=== PATIENT | female | born 1955 | race Caucasian/White ===

== ENCOUNTER 2020-09-20 07:29 | Observation (INO) ==
--- NOTE | 2020-08-22 09:41 | PAT Medication Instructions ---
Medication Instructions Date of Service August 22, 2020 Home Medications cinnamon bark [Cinnamon] 500 mg PO BID levothyroxine 100 mcg PO QAM multivitamin 1 tab PO QAM rosuvastatin [Crestor] 20 mg PO PM timolol 1 drp OPHTHALMIC (EYE) BID metformin 500 mg PO BID STOP taking 2 weeks before surgery (or as soon as possible if surgery is within 2 weeks) cinnamon bark [Cinnamon] 500 mg PO BID DO NOT take the morning of surgery multivitamin 1 tab PO QAM metformin 500 mg PO BID Take morning of surgery With a small sip of water, OTHERWISE NOTHING TO EAT OR DRINK AFTER MIDNIGHT: levothyroxine 100 mcg PO QAM timolol 1 drp OPHTHALMIC (EYE) BID Take evening before surgery rosuvastatin [Crestor] 20 mg PO PM timolol 1 drp OPHTHALMIC (EYE) BID metformin 500 mg PO BID Other Notes If you have any questions please call us at [phone] or [phone] or [phone] or [phone]
--- NOTE | 2020-08-24 09:56 | Anesthesiology Consultation ---
Date of Service August 24, 2020 Assessment & Plan (1) Encounter for pre-operative examination: - Per assessment on 08/24: Travel screen negative. No known COVID-19 positive contacts or current COVID-19 related symptoms. Surgeon arranging preop COVID testing (scheduled 09/14; surgeon's office). Awaiting results. - S/P Left Knee Arthroscopy; Meniscus Debridement; Chondroplasty: 10/09/19: LMA#4 x 1 attempt/atraumatic/good seal at [facility] [place] - Check BSG AM DOS Chart Review Chart Review: Acceptable Risk for Surgery (pending surgeon-ordered PCP clearance) and Patient seen in Pre Admission Testing Teaching & Discussion Pre-Anesthesia Teaching/Discussion Notes: Instructed NPO after midnight before surgery,except medications with 15 cc of water. Medication instructions provided according to the PAT guidelines. History Surgery Operation Date: 09/20/20 07:00 Proposed Procedures p Left Total Knee Arthroplasty - Robert Denise Tillman MD Height/Weight Height: 5 ft 7 in Weight: 92.6 kg Allergies Allergy/AdvReac Type Severity Reaction Status Date / Time No Known Allergies Allergy Verified 08/19/20 16:08 Medications Home Medications Medication Instructions Recorded Confirmed Last Taken cinnamon bark [Cinnamon] 500 mg PO BID 09/22/19 08/19/20 10/08/19 levothyroxine 100 mcg PO QAM 09/22/19 08/19/20 10/08/19 multivitamin 1 tab PO QAM 09/22/19 08/19/20 10/08/19 rosuvastatin [Crestor] 20 mg PO PM 09/22/19 08/19/20 10/08/19 timolol 1 drp OPHTHALMIC (EYE) BID 09/22/19 08/19/20 10/08/19 metformin 500 mg PO BID 08/19/20 08/19/20 Unknown Past Medical History Medical History DM type 2 (diabetes mellitus, type 2) NIDDM Glaucoma Hyperlipidemia Hypothyroidism Osteoarthritis Exercise / Class Metabolic Activity II 4-5 Yardwork/Stairs/Walk up hill (one flight of stairs (no chest pain, no sob)) Past Family History Family History Sister Colon cancer Brother Colon cancer Brother Throat cancer Other No family history of adverse response to anesthesia Past Surgical History Surgical History (Updated 08/24/20 @ 14:21 by Nat Yee) History of carpal tunnel release BILAT History of cataract surgery History of colonoscopy History of hysterectomy History of surgical removal of meniscus of knee R/L; Left Knee Arthroscopy; Meniscus Debridement; Chondroplasty: 10/09/19: LMA#4 x 1 attempt/atraumatic/good seal at [facility] [place] History of tonsillectomy Past Anesthesia History No Hx of Anesthesia Complications and No Family Hx of Anesthesia Complications History of PONV No Hx of PONV and No Hx of Motion Sickness Social History Smoking Status: Never smoker Do You Dip or Chew Tobacco: No Hx Alcohol Use: No Hx Substance Use: No substance use type: does not use Review of Systems Patient denies chest pain, shortness of breath, dyspnea on exertion, fever, chills, cough, wheezing, palpitations. Physical Exam Vital Signs VITALS BP 120/85 P 86 TEMP 98.1 SP02 98%RA RESP 18 PHYSICAL Full neck and c-spine range of motion. Full TMJ range of motion. TMD 3 finger breaths Mallampati Score 1 Dentition: full upper/lower dentures Lungs: clear throughout to auscultation Cardiac: regular rate and rhythm, no murmurs noted Spine: normal Carotid arteries: negative bruit Extremities: no edema Testing Laboratory Results 08/24/20 10:27 08/24/20 10:27 PT 11.2 Seconds (9.0-12.0) 08/24/20 10:27 INR 1.1 (0.9-1.1) 08/24/20 10:27 APTT 30.7 Seconds (21.0-31.0) 08/24/20 10:27 Hemoglobin A1c 8.2 % (4.5-5.6) H 08/24/20 10:27 Blood Type A Positive 08/24/20 10:27 Antibody Screen NEGATIVE 08/24/20 10:27 Surgeon's office made aware of elevated WBC and hgba1c* Electrocardiogram Date: 09/22/19 Findings: + SB @ (59)
[2020-08-24 11:01] LABS: Basophils # (auto) 0.02 K/uL (0-0.2); Basophils % (auto) 0.2 %; Eosinophils # (auto) 0.41 K/uL (0-0.5); Eosinophils % (auto) 3.3 %; Hematocrit (blood only) 45.8 % (37-47); Hemoglobin 15.7 g/dL (12.0-16.0); Immature Granulocytes # (auto) 0.04 K/uL (0.00-0.02); Immature Granulocytes % (auto) 0.3 %; Lymphocytes # (auto) 3.85 K/uL (1.2-3.4); Lymphocytes % (auto) 31.1 %; Mean Corpuscular Hemoglobin 29.2 pg (25-34); Mean Corpuscular Hgb Conc 34.3 g/dL (32-36); Mean Corpuscular Volume 85.1 fL (80-100); Monocytes # (auto) 1.06 K/uL (0.11-0.59); Monocytes % (auto) 8.6 %; Neutrophils % (auto) 56.5 %; Platelet Count 347 K/uL (130-400); RDW Coefficient of Variation 13.7 % (11.5-14.5); RDW Standard Deviation 42.1 fL (36.4-46.3); Red Blood Count 5.38 M/uL (4.2-5.4); White Blood Count 12.38 K/uL (4.8-10.8)
[2020-08-24 11:15] LABS: INR 1.1 (0.9-1.1); Partial Thromboplastin Ratio 1.1; Partial Thromboplastin Time 30.7 Seconds (21.0-31.0); Prothrombin Time 11.2 Seconds (9.0-12.0)
[2020-08-24 11:23] LABS: BUN Creatinine Ratio 12.5 (10-20); Calcium 9.5 mg/dl (8.5-10.1); Creatinine Clr Calc Pharmacy 68.3 ml/min; Est GFR (African American) 71.9; Est GFR (Non-African American) 62.1; Potassium 3.3 mmol/L (3.5-5.1)
[2020-08-24 11:25] LABS: Bilirubin Direct 0.1 mg/dl (0-0.2); Bilirubin,Total 0.5 mg/dl (0.2-1); Total Protein 8.1 gm/dl (6.4-8.2)
[2020-08-24 11:55] LABS: Estimated Average Glucose 189 mg/dl; Hemoglobin A1C 8.2 % (4.5-5.6)
[~2020-09-20 07:29] MED LIST: BUPIVACAINE 0.5 % 5 MG/1 ML PF 10ML VIAL ONE; CeleBREX 200 MG CAP PO SCH; EPINEPHrine INJ 1 MG/ML AMP ONE; LR 500ML BOLUS, THEN 15ML/HR IV SCH; LR 60ML/HR IV SCH; ROPIVACAINE 0.5% 5 MG/ML 30 ML VIAL ONE; ROPIVACAINE 0.5% HCL/PF 150 MG, BUPIVACAINE 0.5% MPF 30 ML, EPINEPHrine 0.15 MG, Ketoro... INFIL SCH; TRANEXAMIC ACID 1,000 MG **IV Intra-op IV SCH; TRANEXAMIC ACID 1,000 MG **IV Pre-op IV SCH; ceFAZolin 2000MG 2,000 MG/15 ML SYR IV SCH
[2020-09-20] MEDS ORDERED: fentaNYL citrate 100 MCG/2 ML VIAL ONE (08:03)
[2020-09-20] MEDS ORDERED: MIDAZOLAM HCL 1 MG/ML 2ML VIAL ONE (08:03)
--- NOTE | 2020-09-20 10:56 | History & Physical Bridge Note ---
Date of Service September 20, 2020 History & Physical Bridge Note I have examined the patient, reviewed the History & Physical and in the interval since the performance of the History & Physical I have noted the following changes of clinical significance: no changes noted Patient is aware of the risks, is asymptomatic, and tested negative for COVID- 19.
[2020-09-20] MEDS ORDERED: ePHEDrine sulfate 50 MG/ML AMP IV PRN (11:25)
[2020-09-20] MEDS ORDERED: ATROPINE SULFATE 0.1 MG/ML 10ML SYR IV PRN (11:25)
[2020-09-20] MEDS ORDERED: ORTHO JOINT ANESTHETIC ONE (11:36)
[2020-09-20] MEDS ORDERED: ONDANSETRON INJ 2 MG/ML 2 ML VIAL ONE (11:52)
[2020-09-20] MEDS ORDERED: LIDOCAINE HCL 2% 2 ML VIAL/AMP(20MG/ML) INFIL ONE (11:52)
[2020-09-20] MEDS ORDERED: PROPOFOL IV EMULSION 10 MG/ML 20 ML VIAL IV ONE (11:52)
--- NOTE | 2020-09-20 14:09 | Post Operative Brief Note ---
Immediate Post Op Note v1 Date of Surgery September 20, 2020 Pre & Post Diagnosis Operation Date: 09/20/20 09:50 Pre-Op Diagnosis: Left Knee Osteoarthritis Post-Op Diagnosis: Left Knee Osteoarthritis I identified the patient and participated in the time-out.: Yes Procedure Operation Date: 09/20/20 09:50 Actual Procedures p Left Total Knee Arthroplasty(Left) - Robert Tillman MD Surgeon Robert Tillman MD Cylinder Block Hole Reliner Viral Flaherty PA-C (No fellow avail) Estimated Blood Loss 100 Findings Consistent with Post-Op Diagnosis Fluids 1500 cc Specimens Left knee contents Anesthesia Type MAC Spinal Regional Complications none
--- NOTE | 2020-09-20 14:10 | Operative Report ---
Post Operative Report Pre & Post Diagnosis Operation Date: 09/20/20 09:50 Pre-Op Diagnosis: Left Knee Osteoarthritis Post-Op Diagnosis: Left Knee Osteoarthritis I identified the patient and participated in the time-out.: Yes Procedure Operation Date: 09/20/20 09:50 Actual Procedures p Left Total Knee Arthroplasty(Left) - Robert Tillman MD Surgeon Robert Tillman MD Rn Community Viarl Flaherty PA-C (No fellow avail) Estimated Blood Loss 100 Findings See Below Examined Under Anesthesia: ROM -- There was 5 degrees to 125 degrees of flexion Ligamentous examination -- revealed stable Guerline, posterior drawer, varus and valgus stress at 5 and 30 degrees. Outerbridge Type IV changes of Patellofemoral and medial compartment, Type III changes in lateral compartment. Large posterior medial tibial osteophyte. Fluids 1500 cc Specimens Left knee contents Anesthesia Type MAC Spinal Regional Complications none Indications This is a 64-year-old female who has clinical and radiographic findings consistent with osteoarthritis of the a left knee. I recommended that a left total knee replacement be performed. The patient understands the risks of surgery, which include but not limited to: bleeding, infection, re-operation, damage to nerves and arteries, continued knee pain, knee stiffness, DVT, and . The patient understands all of these instructions and explanations, all of his questions have been satisfactorily addressed and the patient has elected to proceed. Informed consent was signed. Description of Procedure IMPLANTS: 1. Femur: Triathlon #2 Left PS, with pegs. 2. Tibia: Triathlon #3 Wilmer. 3. Insert: Triathlon #3 x 9 mm PS X3 poly. 4. Patella: Triathlon A29 x 9 mm X3 poly. 5. Simplex cement. Viral Flaherty PA-C is assisting with positioning , retracting, and closure due to fellow not available. PROCEDURE: The patient was taken to the Operating Room and placed in the supine position after spinal and adductor canal nerve block was administered. My initials and a multidisciplinary time-out were used to identify the left leg as the correct operative limb. A tourniquet was placed high in the thigh. Prior to the incision, 2 grams of intravenous Ancef were given. The left leg was then prepped and draped in a standard sterile fashion. An Esmarch was used to exsanguinate the leg and the tourniquet was inflated to 250 mmHg. The planned mid-line 20 cm incision was created exposing the extensor mechanism. The medial parapatellar arthrotomy was made and the patella was everted. The patella was addressed first. It was prepared by reaming from 21 mm down to 13 mm. An A29 button was found to fit best. The peg holes were made in the standard fashion. The femur was addressed next and the guide efren was placed intramedullary. The initial cutting block was placed with 6 degrees of valgus and removing 10 mm for the distal cut. The cut was made and the 4-in-1 cutting block for a size 2 femur was placed. These cuts and the cuts to place the box were made in the standard fashion. Our attention was then drawn to the tibia cut with the external cutting guide, taking 4 mm from the medial low side. There was sufficient extension and flexion gap to fit a 9 mm spacer. A #3 Tibial baseplate fit well. A trial with a 9 mm spacer showed excellent stability in both flexion and extension, with good ligament balance. Range of motion of 0-125 degrees. The tibial baseplate was pinned and the final preparation for the keel and stem was made. All the trial components were tested again, with good stability and thumbs free tracking of the patella. All components were removed. The tourniquet was deflated. Hemostasis was obtained. 90 ml of total knee cocktail were injected into the soft tissues and periosteum. A bone plug was placed in the femur and covered with bone wax. After a 15 minute break, the limb was exsanguinated again and the tourniquet was re-inflated. All surfaces were copiously irrigated prior to placement of the components. The femoral component and Tibial baseplate were placed with the first batch of cement and a 9 mm X3 poly was placed. The patellar button was placed using the same batch of Simplex cement. The range of motion and stability were excellent and unchanged with thumbs free tracking of the patella. The extensor mechanism was closed with 1-0 and 0 Vicryl with the knee bent approximately 60 degrees in a standard fashion. The peritenon and deep fascia was closed with 2-0 Vicryl. The subcutaneous layer was closed with 3-0 Vicryl. The skin was closed with Zipline. The limb was cleaned and dried. 4x4 dressing was placed over top followed by ABDs, sterile Webril, and a foot to thigh Mann bandage. The patient was then transferred to the Recovery Room in stable condition. The sponge and needle counts were correct. POST-OP INSTRUCTIONS: The patient will be WBAT. The patient will be admitted to the hospital. The patient will use the knee immobilizer when ambulating and standing until good quad control is achieved. Labs will be obtained during the stay. DVT prophylaxis will included aspirin for 6 weeks, TEDs, and mechanical foot pumps. The dressing will be changed prior to their discharge or postop day #2 and covered with a Silverlon dressing, whichever comes first. I attest to the content of the Intraoperative Record and any orders documented therein. Any exceptions are noted below.
[2020-09-20] MEDS ORDERED: SODIUM CHLORIDE 0.9% 1000ML 1,000 ML IV SCH (14:21)
[2020-09-20] MEDS ORDERED: MAGNESIUM HYDROXIDE SUSP 30 ML UDC PO PRN (14:21)
[2020-09-20] MEDS ORDERED: NALOXONE HCL 0.4 MG/1 ML VIAL/CARP IV PRN (14:21)
[2020-09-20] MEDS ORDERED: METOCLOPRAMIDE HCL INJ 5 MG/ML 2 ML VIAL IV PRN (14:21)
[2020-09-20] MEDS ORDERED: HYDROmorphone INJ 1 MG/ML SYRINGE IV PRN (14:21)
[2020-09-20] MEDS ORDERED: diphenhydrAMINE Capsule 25 MG CAP PO PRN (14:21)
[2020-09-20] MEDS ORDERED: ONDANSETRON INJ 2 MG/ML 2 ML VIAL IV PRN (14:21)
[2020-09-20] MEDS ORDERED: bisacodyL 10 MG SUPP PR PRN (14:21)
[2020-09-20] MEDS ORDERED: diphenhydrAMINE 50 MG/ML VIAL IV PRN (14:21)
--- NOTE | 2020-09-20 14:23 | Operative Report ---
Post Operative Report Pre & Post Diagnosis Operation Date: 09/20/20 09:50 Pre-Op Diagnosis: Left Knee Osteoarthritis Post-Op Diagnosis: Left Knee Osteoarthritis I identified the patient and participated in the time-out.: Yes Procedure Operation Date: 09/20/20 09:50 Actual Procedures p Left Total Knee Arthroplasty(Left) - Robert Tillman MD Surgeon Robert Tillman MD Software Test Analyst Viral Flaherty PA-C (No fellow avail) Estimated Blood Loss 100 Findings Consistent with Post-Op Diagnosis Specimens bone and soft tissue Complications none Indications see Dr Tillman operative report Description of Procedure See Dr Tillman operative report. I was nurse assistant during entire case to include prepping, draping, limb and instrument handling, wound closure, dressings. I attest to the content of the Intraoperative Record and any orders documented therein. Any exceptions are noted below.
--- NOTE | 2020-09-20 14:48 | XRay Report ---
XR knee LT 1 or 2V routine CLINICAL HISTORY: Surgical Post Op COMPARISON: Left knee radiographs August 09, 2020. FINDINGS: Alignment of the total left knee arthroplasty is anatomic. There is no periprosthetic frac ture or unexpected radiopaque foreign body. IMPRESSION: Expected findings following total left knee arthroplasty. ACT 112: Negative or not required by law. Electronically signed by: Perez Lundy M.D. 09/20/2020 2:47 PM
[2020-09-20] MEDS ORDERED: PHARMACY GLYCEMIC MGMT CONSULT PRN (14:52)
[2020-09-20] MEDS ORDERED: CARBOHYDRATES FOR HYPOGLYCEMIA PO PRN (15:00)
[2020-09-20] MEDS ORDERED: GLUCOSE 10 TABS/TUBE PO PRN (15:00)
[2020-09-20] MEDS ORDERED: GLUCOSE 40% GEL 15 GM TUBE PO PRN (15:00)
[2020-09-20] MEDS ORDERED: DEXTROSE 50% 50 ML SYRINGE IV PRN (15:00)
[2020-09-20] MEDS ORDERED: GLUCAGON FOR INJ 1 MG VIAL IM PRN (15:00)
--- NOTE | 2020-09-20 15:08 | Anesthesiology Progress Note ---
Date of Service September 20, 2020 Anesthesia Post Procedure Vital Signs Vital Signs: Temp Pulse Pulse Resp BP BP Pulse Ox 09/20/20 15:05 65 23 121/71 97 09/20/20 14:55 68 20 126/85 98 09/20/20 14:45 36.5 C 68 20 120/74 99 09/20/20 14:35 69 18 114/73 100 09/20/20 14:25 76 20 132/92 99 09/20/20 14:15 36.1 C L 83 16 118/55 L 93 09/20/20 08:52 36.7 C 72 20 144/84 H 95 09/20/20 08:05 36.7 C 86 18 170/87 H 96 Transfer of Care Handoff Completed per policy Notes Mental Status: alert / awake / arousable Patient Amnestic to Procedure: Yes Nausea / Vomiting: adequately controlled Pain: adequately controlled Airway Patency, RR, SpO2: stable & adequate BP & HR: stable & adequate Hydration State: stable & adequate Neuraxial Anesthesia: was administered and sensory block is resolving Anesthetic Complications: no major complications apparent
[2020-09-20] MEDS: Scopolamine CHECK PATCH PLACEMENT SCH ×2 (17:25→23:25)
[2020-09-20] MEDS: ASCORBIC ACID 500 MG TAB PO SCH (18:17)
[2020-09-20] MEDS: FERROUS GLUCONATE 324 MG TAB PO SCH (18:17)
[2020-09-20] MEDS: INSULIN ASPART 100 UNITS/ML 3 ML PEN SC SCH ×2 (18:27→21:38)
--- NOTE | 2020-09-20 18:27 | Consultation ---
Date of Consultation September 20, 2020 Assessment & Plan (1) Status post total left knee replacement: by Dr Tillman today. Defer pain management, DVT proph, dispo to primary orthopedic team. (2) DM type 2 (diabetes mellitus, type 2): Hold metformin. DM diet. BSGs ac/hs. Add lantus 8 units HS. novolog correction/carb coverage -- agree with correction of 30 and carb ratio 1:10. adjust as needed. (3) Glaucoma: continue home drops (4) Hyperlipidemia: cont statin agent (5) Hypothyroidism: cont synthroid 100mcg daily (6) Abnormal pulse oximetry: O2 sats borderline low during my visit. Good waveform on monitor. Sats ranging 89-92%. No pulmonary symptoms. Clear lung exam. Follow carefully. If this persists at minimum obtain cxr but would also need to consider PE protocol chest CT. (7) DVT prophylaxis: orthopedics has chosen asa 81mg BID. Thank you for this consult. Will follow with you. Agree with CBC, BMP in am. Add mag to am labs. Pre-op medical clearance letter references use of HCTZ at home. History of Present Illness Requesting Physician: Robert Tillman MD Reason for Consultation: post-op medical management Attending Physician: Robert Tillman MD History of Present Illness 64yo female with h/o T2DM, hypothyroidism, and hyperlipidemia who presented today for elective left TKR by Dr Robert Tillman. I saw the patient post-op from her surgery and she was resting comfortably on the orthopedic floor. 100cc of blood loss was reported in the operative record. Patient denied any post-op chest pain, dyspnea, abd pain, nausea, emesis. O2 sats in the room while I was examining her were 89-91% in room air. She did have occasional cough. Denied any personal or family history of VTE. Allergies Allergy/AdvReac Type Severity Reaction Status Date / Time No Known Allergies Allergy Verified 09/20/20 08:03 Home Medications Home Medications Medication Instructions Recorded Confirmed Type cinnamon bark [Cinnamon] 500 mg PO BID 09/22/19 09/20/20 History levothyroxine 100 mcg PO QAM 09/22/19 09/20/20 History multivitamin 1 tab PO QAM 09/22/19 09/20/20 History rosuvastatin [Crestor] 20 mg PO PM 09/22/19 09/20/20 History timolol 1 drp OPHTHALMIC (EYE) HS 09/22/19 09/20/20 History metformin 500 mg PO BID 08/19/20 09/20/20 History Patient History Medical History DM type 2 (diabetes mellitus, type 2) NIDDM Glaucoma Hyperlipidemia Hypothyroidism Osteoarthritis Surgical History History of carpal tunnel release BILAT History of cataract surgery History of colonoscopy History of hysterectomy History of surgical removal of meniscus of knee R/L; Left Knee Arthroscopy; Meniscus Debridement; Chondroplasty: 10/09/19: LMA#4 x 1 attempt/atraumatic/good seal at [facility] [place] History of tonsillectomy Family History Sister Colon cancer Brother Colon cancer Brother Throat cancer Father , age 59 Stroke Mother , in her 80s Gastric cancer Other No family history of adverse response to anesthesia Social History (Updated 09/20/20 @ 22:24 by Mika Figueroa) Smoking Status: Never smoker Second Hand Exposure: No; Do You Dip or Chew Tobacco: No; Hx Alcohol Use: No Hx Substance Use: No Preferred Language: Croatian Communication Ability: Effective Bit Welder Required: No Beliefs That Will Affect Care: None marital status: Current Living Situation: Spouse current occupational status: retired current occupation: worked in [employer] How many Children do You have: 1 Feels Safe at Home: Yes Safety Concerns: Feels Safe At This Time Assistive Devices: Denture - Upper, Denture - Lower and Glasses Review of Systems Constitutional: no fever, no chills, no fatigue and no anorexia Ear, Nose, Mouth, Throat: no nasal congestion, no sore throat and no dysphagia no loss of taste or smell Respiratory: no cough, no dyspnea and no dyspnea on exertion Cardiovascular: no chest pain, no orthopnea and no edema Gastrointestinal: no abdominal pain, no nausea, no vomiting, no diarrhea/loose stools and no blood in stools Genitourinary: + nocturia Musculoskeletal: + joint pain (knees) Integumentary: no rash Neurologic: no loss of sensation Psychiatric: no depression Endocrine: sugars "have been high" (150+) Physical Exam Constitutional: well developed and well nourished; no acute distress and no altered mental status Eyes: pupils equal, about 3mm b/l ENMT: external ear and nose normal, oropharynx normal Neck: trachea midline, no thyromegaly Respiratory: normal respiratory effort, lungs clear to auscultation Cardiovascular: Rate/Rhythm: regular rate and regular rhythm Heart Sounds: normal S1 and normal S2; no murmur Vessels: posterior tibial pulses present and dorsalis pedis pulses present; no JVD Extremities: no edema Gastrointestinal (Abdomen): normal bowel sounds, soft, nontender, no hepatosplenomegaly Musculoskeletal: left knee dressing in place Skin: no rashes, warm and dry Neurologic: moves all extremities; no focal motor deficits Psychiatric: A+Ox3, euthymic affect Lymphatic: no cervical lymphadenopathy Results & Data ([facility]) Vital Signs (Past 12 Hours) Vital Signs Temp Pulse Pulse Resp BP BP Pulse Ox 09/20/20 18:00 36.6 C 77 18 107/68 91 09/20/20 17:25 37.2 C 67 18 116/81 96 09/20/20 16:27 76 15 112/64 92 09/20/20 16:10 75 16 104/55 L 93 09/20/20 15:55 71 22 127/74 92 09/20/20 15:40 69 17 115/73 93 09/20/20 15:25 73 20 113/69 95 09/20/20 15:15 72 18 122/72 97 09/20/20 15:05 65 23 121/71 97 09/20/20 14:55 68 20 126/85 98 09/20/20 14:45 36.5 C 68 20 120/74 99 09/20/20 14:35 69 18 114/73 100 09/20/20 14:25 76 20 132/92 99 09/20/20 14:15 36.1 C L 83 16 118/55 L 93 09/20/20 08:52 36.7 C 72 20 144/84 H 95 09/20/20 08:05 36.7 C 86 18 170/87 H 96 Laboratory Results Laboratory Results - last 24 hr 09/20/20 09/20/20 09/20/20 07:58 14:17 17:08 POC Glucose 153 H 105 H 179 H 09/20/20 20:31 POC Glucose 142 H PG Care Time/CCT Total # of Minutes Spent Total Time Spent with Patient: Total time spent is greater than 50% in coordination of care (as documented) at patient's floor/unit and/or counseling patient: Coding Level of Care Code 06824 Subseq Hosp Care Lvl 3 Diagnoses Status post total left knee replacement Z96.652 DM type 2 (diabetes mellitus, type 2) E11.9 Glaucoma H40.9 Hyperlipidemia E78.5 Hypothyroidism E03.9 Abnormal pulse oximetry R79.81 DVT prophylaxis Z29.9
--- NOTE | 2020-09-20 19:38 | Orthopedic Progress Note ---
Date of Service September 20, 2020 Assessment & Plan (1) Arthritis of knee, left: POD #0 s/p L TKA, doing as well as expected. Resume diet. WBAT LLE with walker, immobilizer when ambulating for 48 hours or until demonstrates good quad control. OOB to chair. Continue pain control. Check labs tomorrow. DVT prophylaxis: TEDs 3 weeks, foot pumps while in hospital, ASA 81 mg BID for 6 weeks. PT/OT. Change Dressing to Silverlon on POD #2 or prior to discharge, whichever comes first. appreciate medicine input. D/C planning. Present on Admission?: Yes Admission and Anticipated Discharge Date Admission Date: September 20, 2020 Subjective Doing well Review of Systems Review of Systems: All systems reviewed & are unremarkable except as noted in HPI & below Physical Exam Physical Exam: LLE: Dressing clean, dry, intact. Calf soft and non-tender. BCR < 2 sec. No sensation or motor. Results & Data ([facility]) Vital Signs (Past 12 Hours) Vital Signs Temp Pulse Pulse Pulse Resp BP BP 09/20/20 19:14 36.6 C 66 18 121/81 09/20/20 18:00 36.6 C 77 18 107/68 09/20/20 17:25 37.2 C 67 18 116/81 09/20/20 16:27 76 15 112/64 09/20/20 16:10 75 16 104/55 L 09/20/20 15:55 71 22 127/74 09/20/20 15:40 69 17 115/73 09/20/20 15:25 73 20 113/69 09/20/20 15:15 72 18 122/72 09/20/20 15:05 65 23 121/71 09/20/20 14:55 68 20 126/85 09/20/20 14:45 36.5 C 68 20 120/74 09/20/20 14:35 69 18 114/73 09/20/20 14:25 76 20 132/92 09/20/20 14:15 36.1 C L 83 16 118/55 L 09/20/20 08:52 36.7 C 72 20 144/84 H 09/20/20 08:05 36.7 C 86 18 170/87 H Pulse Ox 09/20/20 19:14 90 09/20/20 18:00 91 09/20/20 17:25 96 09/20/20 16:27 92 09/20/20 16:10 93 09/20/20 15:55 92 09/20/20 15:40 93 09/20/20 15:25 95 09/20/20 15:15 97 09/20/20 15:05 97 09/20/20 14:55 98 09/20/20 14:45 99 09/20/20 14:35 100 09/20/20 14:25 99 09/20/20 14:15 93 09/20/20 08:52 95 09/20/20 08:05 96 Diagnostic Findings AP & Lateral Left knee show expected findings following cemented TKA.
[2020-09-20] MEDS: oxyCODONE HCL IR 5 MG TAB (IMMEDIATE RELEASE) PO PRN (20:12)
[2020-09-20] MEDS: ceFAZolin 2000MG 2,000 MG/15 ML SYR IV SCH (20:12)
[2020-09-20] MEDS: ACETAMINOPHEN 500 MG TAB PO SCH (21:36)
[2020-09-20] MEDS: TIMOLOL MALEATE 0.5% OP SOLN 5 ML BTL OPB SCH (21:37)
[2020-09-20] MEDS: ROSUVASTATIN CALCIUM 20 MG TAB PO SCH (21:37)
[2020-09-20] MEDS: INSULIN GLARGINE SOLOSTAR 100 UNITS/ML 3 ML PEN SC SCH (21:37)
[2020-09-20] MEDS: DOCUSATE SODIUM 100 MG CAP PO SCH (21:37)
[2020-09-20] MEDS: SENNA 8.6 MG TAB PO SCH (21:37)
[2020-09-21] MEDS: ceFAZolin 2000MG 2,000 MG/15 ML SYR IV SCH (03:34)
[2020-09-21] MEDS: LEVOTHYROXINE SODIUM 100 MCG TABLET PO SCH (05:47)
[2020-09-21] MEDS: ACETAMINOPHEN 500 MG TAB PO SCH ×3 (05:47→21:12)
[2020-09-21] MEDS: oxyCODONE HCL IR 5 MG TAB (IMMEDIATE RELEASE) PO PRN ×2 (05:55→18:09)
[2020-09-21 06:32] LABS: Hemoglobin 13.5 g/dL (12.0-16.0); Mean Corpuscular Hemoglobin 28.8 pg (25-34); Mean Corpuscular Hgb Conc 32.9 g/dL (32-36); Mean Corpuscular Volume 87.6 fL (80-100); Mean Platelet Volume 10.9 fL (7.4-10.4); Platelet Count 332 K/uL (130-400); RDW Standard Deviation 44.6 fL (36.4-46.3); Red Blood Count 4.68 M/uL (4.2-5.4)
[2020-09-21 07:02] LABS: BUN Creatinine Ratio 15.7 (10-20); Calcium 9.9 mg/dl (8.5-10.1); Creatinine Clr Calc Pharmacy 67.5 ml/min; Est GFR (Non-African American) 61.3; Magnesium 2.2 mg/dl (1.8-2.4); Potassium 3.9 mmol/L (3.5-5.1)
[2020-09-21] MEDS ORDERED: COUGH DROP (SUGAR FREE) LOZ 24 LOZ/1 BOX BUCCAL PRN (07:11)
[2020-09-21] MEDS ORDERED: COUGH DROP (SUGAR FREE) LOZ 24 LOZ/1 BOX BUCCAL ONE (07:12)
[2020-09-21] MEDS: FERROUS GLUCONATE 324 MG TAB PO SCH ×2 (07:57→16:09)
[2020-09-21] MEDS: ASPIRIN 81 MG ECTAB PO SCH ×3 (07:57→20:10)
[2020-09-21] MEDS: Scopolamine CHECK PATCH PLACEMENT SCH ×3 (07:57→23:43)
[2020-09-21] MEDS: MULTIVITAMIN TAB PO SCH (07:58)
[2020-09-21] MEDS: ASCORBIC ACID 500 MG TAB PO SCH ×2 (07:58→16:10)
[2020-09-21] MEDS: DOCUSATE SODIUM 100 MG CAP PO SCH ×2 (07:58→20:09)
[2020-09-21] MEDS: metFORMIN HCL 500 MG TAB PO SCH ×2 (08:31→16:09)
[2020-09-21] MEDS: INSULIN ASPART 100 UNITS/ML 3 ML PEN SC SCH ×4 (08:52→20:57)
[2020-09-21] MEDS ORDERED: MULTIVITAMIN TAB PO SCH (09:00)
--- NOTE | 2020-09-21 09:00 | Orthopedic Progress Note ---
Date of Service September 21, 2020 Assessment & Plan (1) Arthritis of knee, left: POD #1 s/p L TKA, doing as well as expected. Continue diet. WBAT LLE with walker, immobilizer when ambulating for 48 hours or until demonstrates good quad control. OOB to chair. Continue pain control. Thanks for medicine input. Pulse O2 running at 92. Hospitalist following. DVT prophylaxis: TEDs 3 weeks, foot pumps while in hospital, ASA 81 mg BID for 6 weeks. PT/OT. Change Dressing to Silverlon on POD #2. appreciate medicine input. D/C planning to home with HHPT. Plan to see again this afternoon. I, Dr. Tillman, saw and examined the patient and discussed the management with my PA. I reviewed my PAs note and agree with the documented findings and the plan of care I developed. Patient did require pain medicine with IV Dilaudid prior to my visit. Will keep overnight and likely discharge home tomorrow if she remains medically stable. Admission and Anticipated Discharge Date Admission Date: September 20, 2020 Subjective Patient in bed. Watching TV. Left leg with ice on knee. B foot pumps on. Pain controlled. Patient did have a dose of IV pain meds but mainly using PO. PT hasnt seen her yet nor has professor of social work. Just got her knee immobilizer. Has been up with nursing to use bathroom. Able to urinate. No bowel movement yet. Tolerating PO diet. Seen by hospitalist. Denies f/c/s, CP, SOB, lightheadedness, dizziness, N/T/R. Physical Exam Physical Exam: In bed, A and O x 3, comfortable. B foot pumps on. L LE dressings intact and ice. R with marcel hose. B calves are soft. Neg homans. Able to wiggle ankles and toes. L LE with 1+ PE, R trace. Sensation intact to light touch. Palpable pulses. Brisk capillary refill. Results & Data ([facility]) Vital Signs (Past 12 Hours) Vital Signs Temp Pulse Resp BP Pulse Ox 09/21/20 07:17 36.7 C 59 L 16 132/74 92 09/21/20 03:37 36.7 C 68 20 148/82 H 96 09/20/20 23:35 36.7 C 61 16 102/64 93 Laboratory Results 09/21/20 09/21/20 09/21/20 Range/Units 08:21 05:56 05:56 WBC 15.90 H (4.8-10.8) K/uL RBC 4.68 (4.2-5.4) M/uL Hgb 13.5 (12.0-16.0) g/dL Hct 41.0 (37-47) % MCV 87.6 (80-100) fL MCH 28.8 (25-34) pg MCHC 32.9 (32-36) g/dL RDW Std Deviation 44.6 (36.4-46.3) fL RDW Coeff of Daniel 14.0 (11.5-14.5) % Plt Count 332 (130-400) K/uL MPV 10.9 H (7.4-10.4) fL Sodium 139 (136-145) mmol/L Potassium 3.9 (3.5-5.1) mmol/L Chloride 106 (98-107) mmol/L Carbon Dioxide 29 (21-32) mmol/L Anion Gap 4.0 (3-11) BUN 15 (7-18) mg/dl Creatinine 0.97 (0.6-1.2) mg/dl Est Cr Clr Drug Dosing 67.5 ml/min Est GFR ( Amer) 71.0 Est GFR (Non-Af Amer) 61.3 BUN/Creatinine Ratio 15.7 (10-20) Glucose 133 H (70-99) mg/dl POC Glucose 134 H (70-99) mg/dl Calcium 9.9 (8.5-10.1) mg/dl Magnesium 2.2 (1.8-2.4) mg/dl 09/20/20 09/20/20 09/20/20 Range/Units 20:31 17:08 14:17 WBC (4.8-10.8) K/uL RBC (4.2-5.4) M/uL Hgb (12.0-16.0) g/dL Hct (37-47) % MCV (80-100) fL MCH (25-34) pg MCHC (32-36) g/dL RDW Std Deviation (36.4-46.3) fL RDW Coeff of Daniel (11.5-14.5) % Plt Count (130-400) K/uL MPV (7.4-10.4) fL Sodium (136-145) mmol/L Potassium (3.5-5.1) mmol/L Chloride (98-107) mmol/L Carbon Dioxide (21-32) mmol/L Anion Gap (3-11) BUN (7-18) mg/dl Creatinine (0.6-1.2) mg/dl Est Cr Clr Drug Dosing ml/min Est GFR ( Amer) Est GFR (Non-Af Amer) BUN/Creatinine Ratio (10-20) Glucose (70-99) mg/dl POC Glucose 142 H 179 H 105 H (70-99) mg/dl Calcium (8.5-10.1) mg/dl Magnesium (1.8-2.4) mg/dl
--- NOTE | 2020-09-21 13:57 | Pharmacy Report ---
Pharmacy Glycemic Short Note 2 - Date of Service September 21, 2020 - Glycemic Short BSG Results (Last 24 hours): 09/20/20 09/20/20 09/20/20 14:17 17:08 20:31 Glucose POC Glucose 105 H 179 H 142 H 09/21/20 09/21/20 09/21/20 05:56 08:21 12:22 Glucose 133 H POC Glucose 134 H 116 H OUTPATIENT ANTIDIABETIC REGIMEN: * metformin 500 mg bid ASSESSMENT: 09/21: * Patient received total of 20 units, of which 8 were basal insulin * Fasting BSG 133 mg/dL - continue same basal insulin * Added home metformin today, continue same CF/CR for now PLAN FOR INPATIENT GLYCEMIC CONTROL: * Resume home metformin today * Basal insulin * Lantus 8 units HS * Bolus insulin * NovoLog per scale ACHS or Q6hrs while NPO * Goal Range: Low 110 mg/dL - High 140 mg/dL * Correction Factor: 30 mg/dL/unit * Nutritional / Prandial insulin per carb ratio of 1 unit per 10 grams CHO consumed
[2020-09-21] MEDS: SENNA 8.6 MG TAB PO SCH (20:10)
[2020-09-21] MEDS: ROSUVASTATIN CALCIUM 20 MG TAB PO SCH (20:10)
[2020-09-21] MEDS: TIMOLOL MALEATE 0.5% OP SOLN 5 ML BTL OPB SCH (20:11)
[2020-09-21] MEDS: INSULIN GLARGINE SOLOSTAR 100 UNITS/ML 3 ML PEN SC SCH (21:12)
--- NOTE | 2020-09-21 22:49 | Hospitalist Progress Note ---
Date of Service September 21, 2020 Assessment & Plan (1) Status post total left knee replacement: POD #1 s/p left TKR by Dr Tillman. vitals/labs acceptable. Defer pain management, DVT proph, dispo to primary orthopedic team. (2) DM type 2 (diabetes mellitus, type 2): CONTROLLED. Cont to hold metformin. DM diet. BSGs ac/hs. Cont lantus 8 units HS. No need for such at discharge. Cont novolog correction/carb coverage --correction of 30 and carb ratio 1:10. resume metformin at d/c. (3) Glaucoma: continue home drops (4) Hyperlipidemia: cont statin agent (5) Hypothyroidism: cont synthroid 100mcg daily (6) Abnormal pulse oximetry: O2 sats lowest 90% in RA since last pm. I had her perform incentive mehrdad in the room during my visit -- sats quickly amandeep to 96% in RA. likely 2nd to atelectasis. cont pulmonary toilet. no DAVIS; doubt PE, etc. (7) DVT prophylaxis: asa 81mg BID doing well from medical standpoint Admission and Anticipated Discharge Date Admission Date: September 20, 2020 Subjective patient feeling well this am except for left knee pain. already worked with PT/OT. had no dyspnea w/ exertion, dizziness, lightheadedness. passing flatus; no stool yet. no chest pain. eating fine. Review of Systems Constitutional: no fever, no fatigue and no anorexia Respiratory: no cough, no dyspnea and no dyspnea on exertion Cardiovascular: no chest pain Gastrointestinal: no abdominal pain, no nausea and no vomiting Physical Exam Constitutional: well developed and well nourished; no acute distress and no altered mental status ENMT: external ear and nose normal, oropharynx normal Respiratory: no respiratory distress Auscultation: + diminished lung sounds (slightly - bases); no crackles and no wheezes Cardiovascular: Rate/Rhythm: regular rate and regular rhythm Heart Sounds: normal S1 and normal S2; no murmur Vessels: posterior tibial pulses present and dorsalis pedis pulses present; no JVD Extremities: no edema Gastrointestinal (Abdomen): normal bowel sounds, soft, nontender, no hepatosplenomegaly Musculoskeletal: left knee dressings intact Psychiatric: A+Ox3, euthymic affect Results & Data Results & Data ([facility]) Vital Signs (Past 12 Hours) Vital Signs Temp Pulse Resp BP Pulse Ox 09/21/20 15:09 36.6 C 83 17 143/79 H 94 09/21/20 11:14 36.7 C 61 18 118/77 92 Laboratory Results Laboratory Results - last 24 hr 09/21/20 09/21/20 09/21/20 05:56 05:56 08:21 WBC 15.90 H RBC 4.68 Hgb 13.5 Hct 41.0 MCV 87.6 MCH 28.8 MCHC 32.9 RDW Std Deviation 44.6 RDW Coeff of Daniel 14.0 Plt Count 332 MPV 10.9 H Sodium 139 Potassium 3.9 Chloride 106 Carbon Dioxide 29 Anion Gap 4.0 BUN 15 Creatinine 0.97 Est Cr Clr Drug Dosing 67.5 Est GFR ( Amer) 71.0 Est GFR (Non-Af Amer) 61.3 BUN/Creatinine Ratio 15.7 Glucose 133 H POC Glucose 134 H Calcium 9.9 Magnesium 2.2 09/21/20 09/21/20 09/21/20 12:22 17:10 20:52 WBC RBC Hgb Hct MCV MCH MCHC RDW Std Deviation RDW Coeff of Daniel Plt Count MPV Sodium Potassium Chloride Carbon Dioxide Anion Gap BUN Creatinine Est Cr Clr Drug Dosing Est GFR ( Amer) Est GFR (Non-Af Amer) BUN/Creatinine Ratio Glucose POC Glucose 116 H 124 H 140 H Calcium Magnesium PG Care Time/CCT Total # of Minutes Spent Total Time Spent with Patient: Total time spent is greater than 50% in coordin ation of care (as documented) at patient's floor/unit and/or counseling patient: Coding Level of Care Code 32076 Subseq Obs Care Lvl 2 Diagnoses Status post total left knee replacement Z96.652 DM type 2 (diabetes mellitus, type 2) E11.9 Glaucoma H40.9 Hyperlipidemia E78.5 Hypothyroidism E03.9 Abnormal pulse oximetry R79.81 DVT prophylaxis Z29.9
[2020-09-22] MEDS: oxyCODONE HCL IR 5 MG TAB (IMMEDIATE RELEASE) PO PRN (01:19)
[2020-09-22] MEDS: LEVOTHYROXINE SODIUM 100 MCG TABLET PO SCH (05:56)
[2020-09-22] MEDS: ACETAMINOPHEN 500 MG TAB PO SCH (05:56)
--- NOTE | 2020-09-22 08:39 | Orthopedic Progress Note ---
Date of Service September 22, 2020 Assessment & Plan (1) Arthritis of knee, left: POD #2 s/p L TKA, doing as well as expected. Continue diet. WBAT LLE with walker, can D/C immobilizer this PM. OOB to chair. Continue pain control with PO meds. Ice, elevation. Thanks for medicine input. Pulse O2 improves with incentive spirometry. Recommends continued use upon D/C. Per medicine likely atelectasis. Stable for DC. DVT prophylaxis: TEDs 3 weeks, foot pumps while in hospital, ASA 81 mg BID for 6 weeks. PT/OT. Dressing changed to Silverlon DC to home today with HHPT. Admission and Anticipated Discharge Date Admission Date: September 20, 2020 Subjective Feeling well this am. Pain controlled on PO meds. Ready to go home. Tolerated PT/OT yesterday. Walked to bathroom this am. PT seeing now to work on stairs. No dyspnea w/ exertion, dizziness, lightheadedness, CP, SOB at rest, N/V, F/C/S, S/S of DVT or PE. She is passing flatus; no stool yet. Tolerated PO diet and fluids. Using incentive spirometry. Seen by hospitalist yesterday. States doing well from medical standpoint and low O2 sats increased with incentive spirometry. Probably due to atelectasis per their note. Review of Systems Review of Systems: All systems reviewed & are unremarkable except as noted in HPI & below Physical Exam Physical Exam: Patient awake, A and 0 x 3. In bed watching TV. Left leg post-op dressing removed. Incision dry other than mild blood drainage distally. Zip line intact. No foul odor or pus. 1+ knee effusion. Min bruising and redness. Calf soft. 1+ PE. NV intact. 5/5 EHL, TA, gastroc. Palpable DP and PT pulses. R LE NV intact as well. R with caitlin hose. B with foot pumps. Results & Data ([facility]) Vital Signs (Past 12 Hours) Vital Signs Temp Pulse Resp BP Pulse Ox 09/21/20 23:31 37.1 C 69 14 123/72 90 09/21/20 23:30 37.1 C 69 14 123/72 90 Laboratory Results 09/21/20 09/21/20 09/21/20 Range/Units 20:52 17:10 12:22 POC Glucose 140 H 124 H 116 H (70-99) mg/dl
[2020-09-22] MEDS: DOCUSATE SODIUM 100 MG CAP PO SCH (09:03)
[2020-09-22] MEDS: metFORMIN HCL 500 MG TAB PO SCH (09:32)
[2020-09-22] MEDS: MULTIVITAMIN TAB PO SCH (09:32)
[2020-09-22] MEDS: ASPIRIN 81 MG ECTAB PO SCH (09:33)
[2020-09-22] MEDS: ASCORBIC ACID 500 MG TAB PO SCH (09:33)
[2020-09-22] MEDS: FERROUS GLUCONATE 324 MG TAB PO SCH (09:33)
[2020-09-22] MEDS: Scopolamine CHECK PATCH PLACEMENT SCH (09:34)
--- NOTE | 2020-09-22 09:35 | Discharge Summary ---
Date of Service September 22, 2020 Principal Diagnosis Left Knee Osteoarthritis Discharge Data Allergies Allergy/AdvReac Type Severity Reaction Status Date / Time No Known Allergies Allergy Verified 09/20/20 08:03 Consultations 09/20/20 14:21 Consult Case Management - Discharge Planning Routine Consult Hospitalist Routine Procedures Performed Operation Date: 09/20/20 09:50 Actual Procedures p Left Total Knee Arthroplasty(Left) - Robert Tillman MD Ordered Studies 09/20/20 05:00 US - OR guided needle placemen Routine Hospital Course (1) Arthritis of knee, left: 64-year-old female underwent a left total knee arthroplasty by Dr. Tillman on September 20 with spinal anesthesia. Surgery was without complication. She was then admitted to the floor. Hospitalist was consulted for medical management. She received 24 hours of postop antibiotics. During her stay she did have low O2 sats. Ranging in the low 90s. Medicine followed. Sats improved with incentive spirometry. Medicine felt due to atelectasis. Patient without chest pain, shortness of breath, dyspnea on exertion, lightheadedness, dizziness, denied any signs or symptoms of a DVT or PE. No further work-up was deemed necessary. Otherwise vital signs and blood work within normal limits. Throughout her stay she tolerated a p.o. diabetic diet and p.o. fluids. Able to urinate and passing gas. Postop day 1 she still required IV pain medication. And was still being followed by medicine in regards to her low O2 sats. She received OT PT, followed instructions of weightbearing as tolerated with a knee immobilizer and walker. DVT prophylaxis during inpatient stay consisted of aspirin 81 mg twice daily, VIDA hose, and foot pumps. On postop day 2 her dressi ngs were removed and a Silverlon dressing was applied which is waterproof. She was no longer requiring IV pain medication and tolerating only p.o. She was seen by health care social worker and set up for home health PT. She was deemed stable to be discharged to home with her . Medicine felt stable as well. Upon discharge patient can DC her immobilizer, continue weightbearing as tolerated to left lower extremity with walker. Continue with ice and elevation. Continue with VIDA hose to bilateral lower extremities as well as aspirin 81 mg twice daily for 6 weeks for DVT prophylaxis. Per medicine continue with incentive spirometry. Discharge medications will include oxycodone for severe pain, Tylenol for mild to moderate pain, aspirin as noted above, iron and vitamin C for 2 weeks. Please see further detailed discharge instructions below. Patient has a follow-up in our office for 2-week postop. She was advised to contact the office if she has any further problems questions or concerns or go to the emergency room. Total Time Total Time Spent Total Time Spent (In Minutes): 20min Discharge Plan Discharge Items Patient Disposition: Home - Home Health Services Reason For Visit: Left Knee Osteoarthritis Discharge Diagnosis: Left Knee Osteoarthritis Activity: Per Instructions section Lifting: None Lifting Comment: to left leg Bathing: Keep incision dry Bathing Comment: silverlon dressing is waterproof. can shower but dont submerge. Exercise Comment: per physical therapy protocol Weightbearing Comment: as tolerated with a walker Non-emergency contact: Surgeon Call non-emergency contact if: your pain is not controlled, your temperature is above 101.5, your wound has increased drainage and your wound pain has increased Follow-up/Referrals: Pradip Dinh [Primary Care Provider] - 09/27/20 9:20 am Ana Flaherty P.A.-C. [Physician Sample Cutter] - 10/05/20 8:30 am (for wound check) Diet: Carb Consistent or DM2 Addtl Attending Provider Instructions: Post-operative Instructions NEW MEDICATIONS: New medications will be sent to your pharmacy: oxycodone, iron, vit c, tylenol, aspirin. You can get all over the counter other than oxycodone if you prefer. Incentive Spirometry Please continue to use. Pain Expect to be in a fair amount of pain after surgery. Remember, our goal is not to eliminate your pain, but to make it tolerable. It is a good idea to stay ahead of your pain by taking the medications you were prescribed once you get home. Typically, the pain starts improving 3-7 days after surgery. You should start weaning off the narcotic pain medication (oxycodone) as soon as your pain improves. Please call our office if your pain is not adequately controlled. You can take tylenol 1000mg every 8hrs for mild to moderate pain. Ice Ice your operative site at least 5 times a day for 15-30 minutes at a time. Make sure you have a thin cloth between the ice or cooling unit and your skin to prevent yanes bite. This is especially important if you received a nerve block. Continue icing your operative site for the first 5-7 days after surgery, then as needed. Diet/Nausea/Vomiting Start by drinking clear liquids and eating crackers. If you can tolerate this, then you may resume your normal diet. If you feel nauseated or vomit, take Zofran/ondansetron (if prescribed). Please call our office if you have intractable nausea or vomiting, or, if after hours, you may go to the Emergency Room for help. Constipation Constipation is a common side effect of narcotic pain medication. If you have not had a bowel movement within 2 days after surgery, we recommend purchasing an over the counter laxative such as Milk of Magnesia, Dulcolax, or Miralax from a local pharmacy, and taking it as instructed. Call our clinic if any questions. Weight bearing and Range of Motion. Weightbearing as tolerated with walker. No restrictions with range of motion. *KNEE IMMOBILIZER x 48hrs AFTER SURGERY WHILE AMBULATING AND THEN CAN STOP (CONTINUE IF YOU DO NOT HAVE GOOD QUAD CONTROL)* Physical therapy Initially you will start with home health physical therapy. At our first visit with at our office we will provide you with script for outpatient physical therapy. Wound care and showering We will inspect your wound at your first post-operative visit, and may do a dressing change at that time. Most patients will be in a water-proof dressing that is removed 14 days after surgery. It is normal to see some dried blood on the dressing. Do not remove your dressing, paper strips or sutures yourself unless you are given permission. Showering is allowed the day after surgery. Do not scrub or remove any dressings. The wound should not be submerged underwater (i.e. in a bathtub or pool) until 4 weeks after surgery VIDA stockings If you were given white stockings, these are to be worn at all times except to shower and sleep (on both legs) for the first 2 weeks after surgery. We will discuss removal at your first follow-up appointment. Driving You may not drive while taking narcotic pain medication. We will discuss return to driving at your first follow-up appointment. Return To Work Your return to work depends on what surgery was done and what type of work you do. Please bring any paperwork your employer needs completed to your first post-operative visit. Also, bring a description of your job duties, as this helps us to understand what risks you may face at work. Travel Avoid long distance travel (greater than 1 hour) in airplanes and cars for the first 6 weeks after surgery if possible. If you must travel, please let us know so we can discuss additional measures to prevent blood clots. Follow-up You should have a follow-up appointment already scheduled for 2 weeks after surgery. If not, please contact our office to make this appointment before you leave the hospital. When to call the office [phone] It is normal to have swelling and bruising in the limb that was operated on. This will improve with time. It is also normal to have fevers for the first 2 days after surgery. Reasons you should call your doctor include: Uncontrolled pain; Nausea, vomiting, or constipation that does not improve with medication; Fevers over 101.5, chills, sweats; Drainage or bleeding from the wound; Foul odor; Spreading areas of redness; Any other concerns. Pending Studies at Discharge: No Stand-Alone Forms: [facility], Smoking Cessation Medications and DC Order Prescriptions: New aspirin 81 mg Tablet,Delayed Release (Dr/Ec) 81 mg PO BID 42 Days Qty: 84 RF: 0 acetaminophen 500 mg Tablet 1,000 mg PO Q8 PRN (Reason: pain) Qty: 60 RF: 0 ascorbic acid (vitamin C) [Vitamin C] 500 mg Tablet 500 mg PO BIDM 14 Days Qty: 28 RF: 0 oxycodone 5 mg Tablet 5 - 10 mg PO Q4H PRN (Reason: pain) Qty: 30 RF: 0 ferrous gluconate 324 mg (38 mg iron) Tablet 324 mg PO BIDM 14 Days Qty: 28 RF: 0 Continued multivitamin Tablet 1 tab PO QAM RF: 0 levothyroxine 100 mcg Tablet 100 mcg PO QAM RF: 0 timolol 0.5 % Drops 1 drp OPHTHALMIC (EYE) HS RF: 0 rosuvastatin [Crestor] 20 mg Tablet 20 mg PO PM RF: 0 cinnamon bark [Cinnamon] 500 mg Capsule 500 mg PO BID RF: 0 metformin 500 mg Tablet 500 mg PO BID RF: 0 Discharge Orders: Discharge Order (Routine); Ordered 09/22/20 Ordered By: Ana Perez/Other Patient Handouts: High Blood Sugar (Hyperglycemia), Managing Type 2 Diabetes Admission Data Admit Date/Time: 09/20/20 14:21 Attending Provider: Robert Tillman Admit Provider: Robert Tillman Primary Care Provider: Pradip Dinh Other Providers: Carmelo Franklin ; [facility]
[2020-09-22] MEDS: INSULIN ASPART 100 UNITS/ML 3 ML PEN SC SCH (09:44)
--- NOTE | 2020-09-22 21:32 | Communication Note ---
Date of Service: September 22, 2020 Patient was discharged prior to my bedside visit. However, BSGs were normal overnight. Vitals stable. O2 sats 90-94% in room air over the last 24 hours. Mika Figueroa MD
== END 2020-09-22 11:03 | disposition home health service (06) ==
LOC: 3W 07:29 → ASU 07:29

== ENCOUNTER 2024-10-06 04:54 | Observation (INO) ==
--- NOTE | 2024-08-13 09:11 | PAT Medication Instructions ---
Medication Instructions Date of Service August 13, 2024 Home Medications Medication Instructions Recorded acetaminophen 500 mg tablet 1,000 mg (2 x 500 mg) PO Q8 PRN 09/22/20 pain #60 tabs oxycodone 5 mg tablet 5 - 10 mg (1 - 2 x 5 mg) PO Q4H 09/22/20 PRN pain #30 tabs cinnamon bark 500 mg capsule (Cinnamon) 500 mg PO BID levothyroxine 100 mcg tablet 112 mcg PO QAM multivitamin 1 tab PO QAM rosuvastatin 20 mg tablet (Crestor) 20 mg PO PM timolol 0.5 % eye drops 1 drp ophthalmic (eye) HS metformin 500 mg tablet 1,000 mg PO BID acetaminophen 500 mg tablet 1,000 mg (2 x 500 mg) PO Q8 PRN pain oxycodone 5 mg tablet 5 - 10 mg (1 - 2 x 5 mg) PO Q4H PRN pain triamterene 75 mg-hydrochlorothiazide 50 mg tablet 0.5 - 1 tab PO DIRECTED PRN Edema STOP taking 2 weeks before surgery (or as soon as possible if surgery is within 2 weeks) cinnamon bark 500 mg capsule (Cinnamon) 500 mg PO BID DO NOT take the morning of surgery multivitamin 1 tab PO QAM metformin 500 mg tablet 1,000 mg PO BID triamterene 75 mg-hydrochlorothiazide 50 mg tablet 0.5 - 1 tab PO DIRECTED PRN Edema Take morning of surgery With a small sip of water, OTHERWISE NOTHING TO EAT OR DRINK AFTER MIDNIGHT: levothyroxine 100 mcg tablet 112 mcg PO QAM acetaminophen 500 mg tablet 1,000 mg (2 x 500 mg) PO Q8 PRN pain (if needed) oxycodone 5 mg tablet 5 - 10 mg (1 - 2 x 5 mg) PO Q4H PRN pain (if needed) Take evening before surgery rosuvastatin 20 mg tablet (Crestor) 20 mg PO PM timolol 0.5 % eye drops 1 drp ophthalmic (eye) HS metformin 500 mg tablet 1,000 mg PO BID acetaminophen 500 mg tablet 1,000 mg (2 x 500 mg) PO Q8 PRN pain (if needed) oxycodone 5 mg tablet 5 - 10 mg (1 - 2 x 5 mg) PO Q4H PRN pain (if needed) triamterene 75 mg-hydrochlorothiazide 50 mg tablet 0.5 - 1 tab PO DIRECTED PRN Edema (if needed) Other Notes If you have any questions please call us at [phone] or [phone] or [phone] or [phone]
--- NOTE | 2024-08-24 08:56 | Anesthesiology Consultation ---
Date of Service August 24, 2024 Assessment & Plan (1) Encounter for pre-operative examination: - Check BSG AM DOS - Infectious disease screening: Per assessment on 08/24/24: No known recent infectious disease contacts or current infectious disease symptoms. - Outpatient joint assessment: Pt currently scheduled for inpatient pathway. If surgeon requests review for outpatient joint pathway, patient is an acceptable candidate for outpatient joint program from anesthesia standpoint pending surgeon's office assessment that patient is motivated, has good support and completes Same Day Joint Program preop requirements. - S/P Left TKA (09/20/20): SAB at L3-4 (1 attempt) + regional at [facility] - Patient acceptable risk for surgery pending surgeon-ordered PCP preop evaluation (Dr. Pradip Dinh, appt 08/31). Chart Review Chart Review: Patient seen in Pre Admission Testing Teaching & Discussion Pre-Anesthesia Teaching/Discussion Notes: Instructed NPO after midnight before surgery,except medications with 15 cc of water. Medication instructions provided according to the PAT guidelines. History Surgery Operation Date: 10/06/24 11:30 Proposed Procedures p Right Total Knee Arthroplasty - Robert Denise Tillman MD Height/Weight Height: 5 ft 7 in Weight: 85.4 kg Allergies Allergy/AdvReac Type Severity Reaction Status Date / Time No Known Allergies Allergy Verified 08/13/24 08:34 Medications Home Medications Medication Instructions Recorded Confirmed Last Taken cinnamon bark 500 mg capsule 500 mg PO BID 09/22/19 08/13/24 09/05/20 17:00 (Cinnamon) levothyroxine 100 mcg tablet 112 mcg PO QAM 09/22/19 08/13/24 09/20/20 05:15 multivitamin 1 tab PO QAM 09/22/19 08/13/24 09/19/20 08:00 rosuvastatin 20 mg tablet (Crestor) 20 mg PO PM 09/22/19 08/13/24 09/19/20 19:10 timolol 0.5 % eye drops 1 drp ophthalmic (eye) HS 09/22/19 08/13/24 09/19/20 19:10 metformin 500 mg tablet 1,000 mg PO BID 08/19/20 08/13/24 09/19/20 17:00 acetaminophen 500 mg tablet 1,000 mg (2 x 500 mg) PO Q8 PRN 09/22/20 08/13/24 Unknown pain #60 tabs oxycodone 5 mg tablet 5 - 10 mg (1 - 2 x 5 mg) PO Q4H 09/22/20 08/13/24 Unknown PRN pain #30 tabs triamterene 75 0.5 - 1 tab PO DIRECTED PRN 08/13/24 08/13/24 Unknown mg-hydrochlorothiazide 50 mg tablet Edema Past Medical History Medical History Arthritis of knee, left DM type 2 (diabetes mellitus, type 2) NIDDM Glaucoma History of COVID-2021 Hyperlipidemia Hypothyroidism Osteoarthritis Exercise / Class Metabolic Activity II 4-5 Yardwork/Stairs/Walk up hill (one FS: No CP, no SOB) Past Family History Family History Sister Colon cancer Brother Colon cancer Brother Throat cancer Father , age 59 Stroke Mother , in her 80s Gastric cancer Other No family history of adverse response to anesthesia Past Surgical History Surgical History History of carpal tunnel release R/L History of cataract surgery R/L History of colonoscopy Told she had longer bleeding than expected after remote colonoscopy with large colon polyp removal 10+ years ago- felt to be r/t ASA use at that time per patient. No similar issues with subsequent surgeries/colonoscopies. No bleeding issues otherwise. History of hysterectomy History of surgical removal of meniscus of knee R/L Left Knee Arthroscopy; Meniscus Debridement; Chondroplasty 10/09/19: LMA#4 x 1 attempt/atraumatic/good seal at [facility] History of tonsillectomy Status post total left knee replacement Left TKA (09/20/20): SAB at L3-4 (1 attempt) + regional at [facility] Past Anesthesia History No Hx of Anesthesia Complications and No Family Hx of Anesthesia Complications History of PONV No Hx of PONV and No Hx of Motion Sickness Social History Smoking Status: Never smoker Do You Dip or Chew Tobacco: No Hx Alcohol Use: No Hx Substance Use: No substance use type: does not use Review of Systems Patient denies chest pain, shortness of breath, dyspnea on exertion, fever, chills, cough, wheezing, palpitations. Physical Exam Vital Signs BP 124/77 P 77 TEMP 98.3 SP02 96%RA RESP 16 Physical Full cervical extension range of motion. Full TMJ range of motion. TMD 3 finger breaths Mallampati Score I Dentition: upper/lower full dentures Lungs: clear throughout to auscultation Cardiac: regular rate and rhythm, no murmurs noted Spine: normal Carotid arteries: negative bruit Extremities: no LE edema Lab Results Anesthesia Preop Results Results Anesthesia Widget: PT 10.5 Seconds (9.0-12.0) 08/24/24 PTT 29 Seconds (21-31) 08/24/24 INR 1.0 (0.9-1.1) 08/24/24 Urine Color Yellow 08/24/24 Urine Appearance Clear (Clear) 08/24/24 Urine pH 5.5 (4.5-7.5) 08/24/24 Urine Specific [place] 1.016 (1.000-1.030) 08/24/24 Urine Protein Negative (Negative) 08/24/24 Urine Glucose (UA) 2+ (Negative) H 08/24/24 Urine Ketones Negative (Negative) 08/24/24 Urine Blood Negative (Negative) 08/24/24 Urine Nitrite Negative (Negative) 08/24/24 Urine Bilirubin Negative (Negative) 08/24/24 Urine Urobilinogen Negative (Negative) 08/24/24 Urine Leukocyte Esterase 1+ (Negative) H 08/24/24 Urine WBC (Auto) 6-10 /hpf (0-5) H 08/24/24 Urine RBC (Auto) 0-2 /hpf (0-2) 08/24/24 Urine Hyaline Casts (Auto) 0-2 /lpf (0-2) 08/24/24 Urine Epithelial Cells (Auto) 0-2 /hpf (0-2) 08/24/24 Urine Bacteria (Auto) None Seen (None Seen) 08/24/24 Blood Type A Positive 08/24/24 Antibody Screen NEGATIVE 08/24/24 Testing Laboratory Results 08/12/24 WBC 9.9 H/H 14.4/44.4 PLATELETS 318 SODIUM 140 POTASSIUM 3.5 CHLORIDE 106 CO2 28.0 BUN 9.0 CREATININE 0.70 GLUCOSE 134 TSH 3.390 HGBA1C 6.5% Electrocardiogram Date: 08/24/24 NSR at 65bpm. "Normal ECG" Chest X-Ray Date: 08/24/24 FINDINGS: Cardiomediastinal and hilar silhouettes are within normal limits. No pneumothorax, pleural effusion, airspace consolidation or pulmonary edema. Bones appear intact. IMPRESSION: No acute process.
[2024-10-06] MEDS: CeleBREX 200 MG CAP PO SCH (06:04)
[2024-10-06] MEDS: LR 500ML BOLUS, THEN 15ML/HR IV SCH (06:04)
[2024-10-06] MEDS: ACETAMINOPHEN 500 MG TAB PO SCH ×2 (06:04→14:47)
[2024-10-06] MEDS: Scopolamine 1 MG TDSY TD SCH (06:05)
[2024-10-06] MEDS: LR 60ML/HR IV SCH (06:07)
[2024-10-06] MEDS ORDERED: BUPIVACAINE 0.5 % 5 MG/1 ML PF 10ML VIAL ONE (06:22)
[2024-10-06] MEDS ORDERED: ROPIVACAINE 0.5% 5 MG/ML 30 ML VIAL ONE (06:22)
[2024-10-06] MEDS ORDERED: HYDROmorphone INJ 1 MG/ML SYRINGE IV PRN (06:29)
[2024-10-06] MEDS ORDERED: ONDANSETRON INJ 2 MG/ML 2 ML VIAL IV PRN (06:29)
[2024-10-06] MEDS ORDERED: fentaNYL citrate PF 100 MCG/2 ML VIAL IV PRN (06:29)
[2024-10-06] MEDS ORDERED: ePHEDrine sulfate 50 MG/ML AMP IV PRN (06:29)
[2024-10-06] MEDS ORDERED: ATROPINE SULFATE 0.1 MG/ML 10ML SYR IV PRN (06:29)
[2024-10-06] MEDS ORDERED: fentaNYL citrate PF 100 MCG/2 ML VIAL ONE (06:35)
[2024-10-06] MEDS ORDERED: MIDAZOLAM HCL 1 MG/ML 2ML VIAL ONE (06:35)
--- NOTE | 2024-10-06 06:36 | History & Physical Bridge Note ---
Date of Service October 06, 2024 History & Physical Bridge Note I have examined the patient, reviewed the History & Physical and in the interval since the performance of the History & Physical I have noted the following changes of clinical significance: no changes noted
[2024-10-06] MEDS: TRANEXAMIC ACID 1,000 MG **IV Pre-op IV SCH (06:54)
[2024-10-06] MEDS: ceFAZolin 2000MG 2,000 MG/15 ML SYR IV SCH ×2 (07:14→16:24)
[2024-10-06] MEDS ORDERED: PROPOFOL IV EMULSION 10 MG/ML 20 ML VIAL IV ONE (07:23)
[2024-10-06] MEDS ORDERED: ePHEDrine sulfate 50 MG/ML AMP ONE (07:54)
[2024-10-06] MEDS: ORTHO JOINT ANESTHETIC ONE (07:57)
[2024-10-06] MEDS: TRANEXAMIC ACID 1,000 MG **IV Intra-op IV SCH (09:03)
[2024-10-06] MEDS: ROPIV 0.5% 246mg, Ketorolac 30mg, EPINEPHrine 0.5mg in NSS INFIL SCH (09:03)
--- NOTE | 2024-10-06 09:24 | Post Operative Brief Note ---
Immediate Post Op Note Date of Surgery October 06, 2024 Pre & Post Diagnosis Operation Date: 10/06/24 07:00 Pre-Op Diagnosis: Osteoarthritis Knee Right Post-Op Diagnosis: Osteoarthritis Knee Right I identified the patient and participated in the time-out.: Yes Procedure Operation Date: 10/06/24 07:00 Actual Procedures p Right Total Knee Arthroplasty(Right) - Robert Tillman MD Surgeon Robert Tillman MD Wind Tunnel Technician ARLENE Byrnes_C (No fellow avail) Estimated Blood Loss 50 Findings Consistent with Post-Op Diagnosis Fluids 1300 cc Specimens Right knee contents Anesthesia Type MAC Spinal Regional Complications none
--- NOTE | 2024-10-06 09:24 | Operative Report ---
Post Operative Report Pre & Post Diagnosis Operation Date: 10/06/24 07:00 Pre-Op Diagnosis: Osteoarthritis Knee Right Post-Op Diagnosis: Osteoarthritis Knee Right I identified the patient and participated in the time-out.: Yes Procedure Operation Date: 10/06/24 07:00 Actual Procedures p Right Total knee replacement, imageless computer assisted navigation (Right) - Robert Tillman MD Surgeon Robert Tillman MD Electroplater Automatic ORLANDO Byrnes (No fellow avail) Estimated Blood Loss 50 Findings See Below Examined Under Anesthesia: ROM -- There was 5 degrees to 130 degrees of flexion Ligamentous examination -- revealed stable Guerline, posterior drawer, varus and valgus stress at 5 and 30 degrees. [place] Grade IV changes of Patellofemoral and medial compartments, grade III changes lateral compartment.. Fluids 1300 cc Specimens Right knee contents Anesthesia Type MAC Spinal Regional Complications none Indications This is a 68-year-old female who has clinical and radiographic findings consistent with osteoarthritis of the a right knee. I recommended that a right total knee replacement be performed. The patient understands the risks of surgery, which include but not limited to: bleeding, infection, re-operation, damage to nerves and arteries, continued knee pain, knee stiffness, DVT, and . The patient understands all these instructions and explanations, all his questions have been satisfactorily addressed and the patient has elected to proceed. Informed consent was signed. Description of Procedure IMPLANTS: 1. Femur: Triathlon #2 Right PS with distal femoral pegs. 2. Tibia: Triathlon #3 [place]. 3. Insert: Triathlon #3 x 9 mm PS X3 poly. 4. Patella: Triathlon A29 x 9 mm X3 poly. 5. Palacos G cement. Javy Adam PA-C is assisting with positioning, retracting, and closure due to fellow not available. Procedure: The patient was taken to the Operating Room and placed in the supine position after spinal and adductor canal nerve block was administered. My initials and a multidisciplinary time-out were used to identify the right leg as the correct operative limb. A tourniquet was placed high in the thigh. Prior to the incision, 2 grams of intravenous Ancef were given. One g of TXA was given pre- operatively and another after the tourniquet was released. The right leg was then prepped and draped in a standard sterile fashion. An Esmarch was used to exsanguinate the leg and the tourniquet was inflated to 250 mmHg. The planned mid-line 20 cm incision was created exposing the extensor mechanism. The medial parapatellar arthrotomy was made and the patella was everted. The patella was addressed first. It was prepared by reaming from 23 mm down to 13 mm. An A29 button was found to fit best. The peg holes were made in the standard fashion. The femur was addressed next and using computer assisted OrthoAlign with 3 degrees of flexion and 0 degrees of valgus, removing 10 mm in the standard fashion for the distal cut. The cut was made and the 4-in-1 cutting block for a size 2 femur was placed. These cuts and the cuts to place the box were made in the standard fashion. The distal peg were created after testing knee stability with trial components in and using the trial femur as a guide in the standard fashion. Our attention was then drawn to the tibia cut with using imageless computer assisted OrthoAlign, taking 2 mm from the medial low side. There was sufficient extension and flexion gap to fit a 9 mm spacer. A #3 Tibial baseplate fit well. A trial with a 9 mm spacer showed excellent stability in both flexion and extension, with good ligament balance, and thumbs free patellar tracking. Range of motion of 0-135 degrees. The tibial baseplate was prepped for the keel and stem. All components were removed. 90 ml of total knee cocktail were injected into the soft tissues and periosteum. All surfaces were copiously irrigated prior to placement of the components. The Tibial baseplate followed by Femoral component were cemented in place and the 9 mm X3 poly was placed. Next, the patellar button was placed using the same cement. Once the cement had cured, the range of motion and stability were unchanged. The tourniquet was deflated. Hemostasis was obtained. Another 1g TXA was given. The extensor mechanism was closed with 1-0 Vicryl and 0 Stratafix with the knee bent approximately 60 degrees in a standard fashion. The peritenon and deep fascia was closed with 2-0 Vicryl. The subcutaneous layer was closed with 3-0 Vicryl. The skin was closed with Zipline and shield. The limb was cleaned and dried. 4x4 dressing was placed over top followed by ABDs, sterile Webril, and a foot to thigh Mann bandage. The patient was then transferred to the Recovery Room in stable condition. The sponge and needle counts were correct. POST-OP INSTRUCTIONS: The patient will be WBAT. The patient will be admitted to the hospital. Complete 24-hour course antibiotics. Labs will be obtained during the stay. DVT prophylaxis will include aspirin for 6 weeks, TEDs, and mechanical foot pumps. The dressing will be changed postop day #2-3 and covered with a Silverlon dressing. I attest to the content of the Intraoperative Record and any orders documented therein. Any exceptions are noted below.
--- NOTE | 2024-10-06 09:47 | Operative Report ---
Post Operative Report Pre & Post Diagnosis Operation Date: 10/06/24 07:00 Pre-Op Diagnosis: Osteoarthritis Knee Right Post-Op Diagnosis: Osteoarthritis Knee Right I identified the patient and participated in the time-out.: Yes Procedure Operation Date: 10/06/24 07:00 Actual Procedures p Right Total Knee Arthroplasty(Right) - Robert Denise Tillman MD Surgeon Dr Tillman Cutting And Boning Supervisor ARLENE Byrnes_Jt (No fellow avail) Estimated Blood Loss 50 Findings Consistent with Post-Op Diagnosis Specimens right knee bone Description of Procedure Pt was taken to operating room and properly positioned for procedure. Refer to anesthesia's note for anesthesia used. Pt was given pre-op antibiotics. Prepped and draped in sterile fashion. I was present during the entire case and assisted with positioning, instrumentation, closure and dressings. Please see surgeon's op report for further detail. Pt was awake and transferred to PACU in stable condition I attest to the content of the Intraoperative Record and any orders documented therein. Any exceptions are noted below.
[2024-10-06] MEDS ORDERED: MAGNESIUM HYDROXIDE SUSP 30 ML UDC PO PRN (11:17)
[2024-10-06] MEDS ORDERED: bisacodyL 10 MG SUPP PR PRN (11:17)
[2024-10-06] MEDS ORDERED: diphenhydrAMINE Capsule 25 MG CAP PO PRN (11:17)
[2024-10-06] MEDS ORDERED: PHARMACY GLYCEMIC MGMT CONSULT PRN (11:17)
[2024-10-06] MEDS ORDERED: NALOXONE HCL 0.4 MG/1 ML VIAL/CARP IV PRN (11:17)
[2024-10-06] MEDS ORDERED: METOCLOPRAMIDE HCL INJ 5 MG/ML 2 ML VIAL IV PRN (11:17)
[2024-10-06] MEDS ORDERED: HYDROmorphone INJ 0.5 MG/0.5 ML SYR IV PRN (11:17)
--- OUTSIDE RECORDS SUMMARY | 2024-10-06 11:31 | External Medical Summary | Continuity of Care Document ---
Author Name Unknown Organization [id number] Address [address] [place] [phone] Care Team Providers Care Contact Clerk Name Role Phone Pradip Dinh Primary Care Physician [phone] Encounter [facility] [id number] Date(s): 09/09/24 - 09/09/24 [facility] [address] [employer] [place] [place] [id number] [address] [place] [id number] Encounter Diagnosis Right knee DJD(Discharge Diagnosis) - 09/09/24 Discharge Disposition: Home or Self Care Attending Physician: YASMINE Adam, Nedra Referring Physician: MD Layne, Robert A Allergies, Adverse Reactions, Alerts No Known Medication Allergies Medications cinnamon Start: 07/28/19 9:47:00 AM EDT, 2 daily Start Date: 07/28/19 Status: Ordered hydroCHLOROthiazide-triamterene 50 mg-75 mg oral tablet Start: 06/28/20 9:01:00 AM EDT, 1 tab, PO, Daily Start Date: 06/28/20 Status: Ordered levothyroxine Start: 07/28/19 9:47:00 AM EDT, 112 mcg =, PO, Daily Start Date: 07/28/19 Status: Ordered metFORMIN 500 mg oral tablet Start: 08/09/20 9:20:00 AM EDT, PO, bid, 1000 mg Start Date: 08/09/20 Status: Ordered rosuvastatin Start: 07/28/19 9:47:00 AM EDT, 20 mg =, PO, Daily Start Date: 07/28/19 Status: Ordered timolol maleate 0.25% ophthalmic gel forming solution Start: 02/20/23 7:54:00 AM EDT, 1 drop, both eyes, Daily Start Date: 02/20/23 Status: Ordered Mental Status 10/9/24 Barriers to Learning one year None evide nt Mandatory Health Literacy Documentation Yes Health Literacy Communication Barriers N ever Primary Language Gambian Problem List Condition Confirmation Course Effective Dates Status Health St atus Informant Arthritis of left wrist Confirmed Active S/P TKR (total knee replacement) using cement Confirmed Active Left knee pain Confirmed Active Left knee DJD Confirmed Active Left forearm pain Confirmed Active Left ankle swelling Confirmed Active Diagnosis Diagnosis Type Effective Dates Health Status Cl inical Service Informant Right knee DJD Discharge Diagnosis 09/09/24 Procedures Procedure Date Related Diagnosis Body Site Status Total knee replacement 1 09/20/20 Completed History of orthopedic surgery 2 10/09/19 Completed 1left 2left knee Vital Signs Most recent to oldest [Reference Range]: 1 Height 168 cm (09/09/24 8:55 AM) Patient Weight 87 kg (09/09/24 8:55 AM) Body Mass Index 30.82 kg/m2 (09/09/24 8:55 AM) Temperature [36.5-37.9 DegC] 36.4 DegC *LOW* (09/09/24 8:55 AM) Heart Rate 67 bpm (09/09/24 8:55 AM) Blood Pressure 160/70mmHg (09/09/24 8:55 AM) Cuff Pulse Pressure 90 mmHg (09/09/24 8:55 AM) Social History Social History Type Response Smoking Status Never smoked cigaret caitlin Sex Female Sex Representation Female (finding) Patient Care team information Care Team Personnel Name: MD Fabrizio, Pradip Waters Position: Referring Member Role: Primary Care Provider Address: [facility] Care [address]
--- NOTE | 2024-10-06 11:51 | Hospitalist Consultation ---
Date of Consultation October 06, 2024 Assessment & Plan (1) S/P right knee surgery: S/p right total knee arthroplasty with Dr. Tillman on 10/06 Perioperative antibiotics, pain control, fluids, and DVT PPx per the primary team Postop knee x-ray ordered, pending Agree with a.m. CBC, BMP; we will follow (2) DM type 2 (diabetes mellitus, type 2): Last A1c at 8/2% on 08/24/2020 Agree with holding metformin Pharmacy glycemic consult in place Will add on hypoglycemia medications Recommend SSI while inpatient T2DM diet BSG ACHS Adjust regimen as needed AM A1c (3) Hypothyroidism: Continue levothyroxine (4) Hyperlipidemia: Continue rosuvastatin (5) Glaucoma: Continue timolol drops Plan Agree with current medical management with recommended changes as above: Disposition: Continued stay on MedSurg T2DM diet Thank you for allowing us to participate in the care of this patient, please reach out with any questions or concerns; we will continue to follow. Supervising Physician Co-Signing Physician Notes I personally saw and examined the patient. I independently reviewed the labs, E KG, imaging, problem list, medication list, past medical history and family history. I verified all molina points and agree with Tunde Enriquez PA-C with the following exceptions and/or additions: 68 year old POD#0 right total knee replacement. No acute concerns or questions from the patient O/E HS RRR, no murmurs, Chest CTAB, Abdo SNT A/P VTE/bowel/pain management per primary orthopedic team as above No change to plan above for chronic medical conditions History of Present Illness Reason for Consultation: Medical management Requesting Physician: Robert Tillman MD Attending Physician: Robert Tillman MD History of Present Illness Madalyn is a 68-year-old female with PMH of HLD, hypothyroidism, T2DM, osteoarthritis, and glaucoma. She presented on 10/06 for a right total knee arthroplasty with Dr. Tillman. Per review of brief operative report, EBL was listed as 50 cc, MAC spinal regional anesthesia was used, and findings were consistent with postop diagnosis. Per review of patient's vitals postop, she has been mildly hypertensive; no episodes of hypotension or tachycardia. Patient reports her pain is well-managed at present; 1/10 pain in the right knee. No radiation up towards the back or down towards the foot. It is slightly worse with movements, but she does exhibit the ability to bend her right knee without difficulty. Patient did not take any of her regular morning medicine today as instructed. No recent change in medication dosages. She has not taken metformin for the past 2 days, as instructed. No supplemental oxygen use at home or CPAP at night. She has been eating and drinking well since the surgery. She has not tried to get up or use the bathroom since her surgery. No new complaints at this time. ROS: Patient endorses mild/dull right knee pain, and numbness and tingling in the right leg (resolved; only present while she was in recovery) Patient denies fever, chills, sweats, dizziness, lightheadedness, headache, chest pain, chest palpitations, pleuritic CP, SOB, cough, abdominal pain, N/V/D, changes in urinary or bowel habits, saddle anesthesia, or numbness or tingling in the legs at present. Allergies Allergy/AdvReac Type Severity Reaction Status Date / Time No Known Allergies Allergy Verified 10/06/24 05:38 Home Medications Medication Instructions Recorded Confirmed Type cinnamon bark 500 mg capsule 500 mg PO BID 09/22/19 10/06/24 History (Cinnamon) levothyroxine 100 mcg tablet 112 mcg PO QAM 09/22/19 10/06/24 History multivitamin 1 tab PO QAM 09/22/19 10/06/24 History rosuvastatin 20 mg tablet (Crestor) 20 mg PO PM 09/22/19 10/06/24 History timolol 0.5 % eye drops 1 drp ophthalmic (eye) HS 09/22/19 10/06/24 History metformin 500 mg tablet 1,000 mg PO BID 08/19/20 10/06/24 History acetaminophen 500 mg tablet 1,000 mg (2 x 500 mg) PO Q8 PRN 09/22/20 10/06/24 Rx pain #60 tabs oxycodone 5 mg tablet 5 - 10 mg (1 - 2 x 5 mg) PO Q4H 09/22/20 10/06/24 Rx PRN pain #30 tabs Vitamin C (ascorbate calcium) 1 tab PO DAILY 10/06/24 10/06/24 History Patient History Medical History Arthritis of knee, left DM type 2 (diabetes mellitus, type 2) NIDDM Glaucoma History of COVID-2021 Hyperlipidemia Hypothyroidism Osteoarthritis Surgical History History of carpal tunnel release R/L History of cataract surgery R/L History of colonoscopy Told she had longer bleeding than expected after remote colonoscopy with large colon polyp removal 10+ years ago- felt to be r/t ASA use at that time per patient. No similar issues with subsequent surgeries/colonoscopies. No bleeding issues otherwise. History of hysterectomy History of surgical removal of meniscus of knee R/L Left Knee Arthroscopy; Meniscus Debridement; Chondroplasty 10/09/19: LMA#4 x 1 attempt/atraumatic/good seal at [facility] [place] History of tonsillectomy Status post total left knee replacement Left TKA (09/20/20): SAB at L3-4 (1 attempt) + regional at [facility] Family History Sister Colon cancer Brother Colon cancer Brother Throat cancer Father , age 59 Stroke Mother , in her 80s Gastric cancer Other No family history of adverse response to anesthesia Social History Smoking Status: Never smoker Second Hand Exposure: No; Do You Dip or Chew Tobacco: No; Tobacco Cessation Education Requested by Patient: No Hx Alcohol Use: No Hx Substance Use: No Preferred Language: [place] Communication Ability: Effective Metal Base Blocker Required: No Beliefs That Will Affect Care: None marital status: Current Living Situation: Spouse current occupational status: retired current occupation: worked in manufacturing How many Children do You have: 1 Other Information That Helps Us Care for You: No Feels Safe at Home: Yes Safety Concerns: Feels Safe At This Time Assistive Devices: Walker Review of Systems Review of Systems: See HPI above Physical Exam Physical Exam: General: no acute distress; pleasant affect; non-toxic appearing; well- nourished; cooperative; SpO2 96% on RA HEENT: normocephalic, atraumatic; no scleral icterus; PERRLA; vision and hearing grossly intact Neck: supple; no lymphadenopathy; trachea midline Skin: warm, dry without signs of tenting; no cyanosis; no rashes, bruising, lesions, or erythema noted CV: chest wall NTP; RRR; S1/S2 normal; no murmurs/rubs/gallops; pulses intact and symmetric at radial, DP, and PT Lungs: no acute respiratory distress; symmetrical chest wall expansion; clear breath sounds across all lung mir w/o adventitious sounds; no wheezing ABD: Soft, NTP; BS present; no rebound/guarding; no distention MSK: no tics or fasciculations; no edema noted in the LEs b/l, nonerythematous; patient demonstrates ability to wiggle her toes/plantarflex/dorsiflex; patient demonstrates ability to bend her right knee without pain or difficulty (note: SCDs and teds in place) Neuro: A&Ox3; normal mood and affect; fluent speech; no focal deficits; sensation intact and symmetric in the lower extremities bilaterally assessed via light touch at the feet Results & Data Results & Data Vital Signs (Past 12 Hours) Vital Signs Temp Pulse Pulse Resp BP Pulse Ox O2 Del Method 10/06/24 11:43 36.4 C L 73 16 159/82 H 96 Room Air 10/06/24 11:19 36.4 C L 75 16 160/90 H 97 Room Air 10/06/24 11:00 88 15 172/99 H 95 Room Air 10/06/24 10:50 73 17 161/88 H 98 Room Air 10/06/24 10:40 79 16 167/85 H 96 Room Air 10/06/24 10:30 75 14 161/90 H 98 Room Air 10/06/24 10:20 83 15 149/89 H 98 Room Air 10/06/24 10:10 36.4 C L 68 14 160/96 H 95 Room Air 10/06/24 10:00 81 14 158/78 H 96 Room Air 10/06/24 09:50 76 16 142/84 H 95 Room Air 10/06/24 09:42 36.0 C L 88 17 149/79 H 95 Room Air 10/06/24 05:41 36.6 C 64 20 174/83 H 96 Room Air Laboratory Results Abnormal lab results 10/06/24 10/06/24 10/06/24 Range/Units 05:54 09:45 11:23 POC Glucose 160 H 128 H 123 H (70-99) mg/dl PG Care Time/CCT Total # of Minutes Spent Total Time Spent with Patient: Total time spent is greater than 50% in coordination of care (as documented) at patient's floor/unit and/or counseling patient: Coding [place] [address] IN/OBS CONSULT LVL 3,45M Patient Type Established Medical Decision Making Moderate Complexity Diagnoses S/P right knee surgery Z98.890 DM type 2 (diabetes mellitus, type 2) E11.9 Hypothyroidism E03.9 Hyperlipidemia E78.5 Glaucoma H40.9
[2024-10-06] MEDS ORDERED: CARBOHYDRATES FOR HYPOGLYCEMIA PO PRN (12:00)
[2024-10-06] MEDS ORDERED: GLUCOSE 10 TAB/TUBE PO PRN (12:00)
[2024-10-06] MEDS ORDERED: GLUCAGON FOR INJ 1 MG VIAL SQ PRN (12:00)
[2024-10-06] MEDS ORDERED: GLUCOSE 40% GEL 15 GM TUBE PO PRN (12:00)
[2024-10-06] MEDS ORDERED: DEXTROSE 50% 50 ML SYRINGE IV PRN (12:00)
[2024-10-06] MEDS: INSULIN ASPART PER UNIT CHARGE SC SCH (12:11)
--- NOTE | 2024-10-06 13:18 | XRay Report ---
XR knee RT 1 or 2V routine HISTORY: 68 years-old Female Surgical Post Op right knee arthroplasty COMPARISON: 07/29/2024 TECHNIQUE: 2 views of the right knee FINDINGS: Total joint arthroplasty with patellar resurfacing. Expected postoperative soft tissue swelling with deep tissue air. No acute fracture or unexpected opaque foreign body. IMPRESSION: Total joint arthroplasty with expected postoperative changes. ACT 112: Negative or not required by law. The above report was generated using voice recognition software. It may contain grammatical, syntax o r spelling errors. Electronically signed by: Barrett Mejia M.D. 10/06/2024 1:17 PM
--- NOTE | 2024-10-06 13:24 | Pharmacy Report ---
Pharmacy Glycemic Short Note 2 - Date of Service October 06, 2024 - Glycemic Short BSG Results (Last 24 hours): 10/06/24 10/06/24 10/06/24 05:54 09:45 11:23 POC Glucose 160 H 128 H 123 H OUTPATIENT ANTIDIABETIC REGIMEN: * metformin 1000 mg PO BID * A1c to be drawn 11/6 am (last A1c found in [facility] records 8.2% from 2019) ASSESSMENT: * Madalyn is a 68 yo diabetic patient s/p right total knee arthroplasty. No st eroids ordered. * BSGs acceptable thus far (160, 128, 123 mg/dL). Will hold metformin until evidence of patient tolerating oral diet and acceptable renal function. * Start SQ bolus insulin based on weight stress 2. * Hold basal insulin for now pending fasting BSG 11/6 AM. PLAN FOR INPATIENT GLYCEMIC CONTROL: * Hold outpatient oral diabetes medications * Basal insulin * hold * Bolus insulin * NovoLog per scale ACHS or Q6hrs while NPO * Goal Range: Low 110 mg/dL - High 140 mg/dL * Correction Factor: 25 mg/dL/unit * Nutritional / Prandial insulin per carb ratio of 1 unit per 10 grams CHO consumed
--- NOTE | 2024-10-06 15:37 | Orthopedic Progress Note ---
Date of Service October 06, 2024 Assessment & Plan (1) S/P right knee surgery: Plan: POD 0 s/p total knee arthroplasty WBAT with walker PT/OT Diet - regular Frequently ice and elevate with blankets stacked under ankle DVT prophylaxis: ASA 81mg BID x 6 weeks, TEDS x 3 weeks, foot pumps while in hospital Pain control: Tylenol 1000mg q 8hrs, oxycodone 5-10mg q4-6 hrs for moderate pain, Dilaudid 0.5mg IV for severe/breakthrough pain Vitamin C and Iron supplementation BID x 2 weeks Dressing: Leave dressing in tact Discharge home with home health/PT x 2 weeks Follow up as scheduled with [facility] for dressing change in 3 days and zip line removal in 2 weeks. Admission and Anticipated Discharge Date Admission Date: October 06, 2024 Subjective Patient is a 68-year-old female postop day 0 status post right total knee arthroplasty. She says that she is doing well. Her block is starting to wear off and she is starting to get some pain in her knee. She is sitting up in the chair. Has no issues or complaints currently. Physical Exam Physical Exam: General: Pt laying in hospital bed AA&O, in NAD, calm and cooperative during exam Lower Extremity: Dressing in tact and not saturated. Pt has full ROM of ankle and all 5 digits. Pt has 4/5 strength with resisted DF/PF. NVI with sensation to light touch distally and good distal pulses present. Results & Data Vital Signs (Past 12 Hours) Vital Signs Temp Pulse Pulse Resp BP Pulse Ox O2 Del Method 10/06/24 14:38 36.3 C L 82 18 149/84 H 96 Room Air 10/06/24 13:23 36.7 C 85 18 158/91 H 97 Room Air 10/06/24 12:27 36.4 C L 81 15 150/82 H 96 Room Air 10/06/24 11:43 36.4 C L 73 16 159/82 H 96 Room Air 10/06/24 11:19 36.4 C L 75 16 160/90 H 97 Room Air 10/06/24 11:00 88 15 172/99 H 95 Room Air 10/06/24 10:50 73 17 161/88 H 98 Room Air 10/06/24 10:40 79 16 167/85 H 96 Room Air 10/06/24 10:30 75 14 161/90 H 98 Room Air 10/06/24 10:20 83 15 149/89 H 98 Room Air 10/06/24 10:10 36.4 C L 68 14 160/96 H 95 Room Air 10/06/24 10:00 81 14 158/78 H 96 Room Air 10/06/24 09:50 76 16 142/84 H 95 Room Air 10/06/24 09:42 36.0 C L 88 17 149/79 H 95 Room Air 10/06/24 05:41 36.6 C 64 20 174/83 H 96 Room Air Diagnostic Findings Knee X-Ray 10/06/24 09:54 XR knee RT 1 or 2V routine HISTORY: 68 years-old Female Surgical Post Op right knee arthroplasty COMPARISON: 07/29/2024 TECHNIQUE: 2 views of the right knee FINDINGS: Total joint arthroplasty with patellar resurfacing. Expected postoperative soft tissue swelling with deep tissue air. No acute fracture or unexpected opaque foreign body. IMPRESSION: Total joint arthroplasty with expected postoperative changes. ACT 112: Negative or not required by law. The above report was generated using voice recognition software. It may contain grammatical, syntax or spelling errors. Electronically signed by: Barrett Mejia M.D. 10/06/2024 1:17 PM
[2024-10-06] MEDS ORDERED: Scopolamine CHECK PATCH PLACEMENT SCH (16:00)
[2024-10-06] MEDS: oxyCODONE HCL IR 5 MG TAB (IMMEDIATE RELEASE) PO PRN (16:21)
[2024-10-06] MEDS: FERROUS GLUCONATE 324 MG TAB PO SCH (16:24)
[2024-10-06] MEDS: ROSUVASTATIN CALCIUM 20 MG TAB PO SCH (20:09)
[2024-10-06] MEDS: DOCUSATE SODIUM 100 MG CAP PO SCH (20:09)
[2024-10-06] MEDS: SENNA 8.6 MG TAB PO SCH (20:09)
[2024-10-06] MEDS: TIMOLOL MALEATE 0.5% OP SOLN 5 ML BTL OPB SCH (20:10)
[2024-10-07] MEDS: LEVOTHYROXINE SODIUM 112 MCG TABLET PO SCH (05:41)
[2024-10-07 06:01] LABS: Hematocrit (blood only) 35.9 % (37.0-47.0); Hemoglobin 11.7 g/dl (12.0-16.0); Mean Corpuscular Hemoglobin 27.9 pg (25.0-34.0); Mean Corpuscular Hgb Conc 32.6 g/dL (32.0-36.0); Mean Corpuscular Volume 85.7 fL (80.0-100.0); Mean Platelet Volume 10.7 fL (9.4-12.4); Platelet Count 288 K/uL (130-400); RDW Coefficient of Variation 14.2 % (11.5-14.5); RDW Standard Deviation 44.3 fL (36.4-46.3); Red Blood Count 4.19 M/uL (4.20-5.40); White Blood Count 10.38 K/ul (4.8-10.8)
[2024-10-07 06:10] VITALS: TEMP 97.9
[2024-10-07 06:18] LABS: BUN Creatinine Ratio 15.4 (10-20); Calcium 8.8 mg/dl (8.6-10.3); Creatinine Clr Calc Pharmacy 91.8 ml/min; Potassium 4.3 mmol/L (3.5-5.1)
[2024-10-07 07:35] VITALS: BP 147/82; PULSE 75; RESP 18; O2SAT 96
[2024-10-07 07:37] LABS: Estimated Average Glucose 163 mg/dl; Hemoglobin A1C 7.3 % (4.5-5.6)
[2024-10-07] MEDS: ASPIRIN 81 MG ECTAB PO SCH (08:02)
[2024-10-07] MEDS: ASCORBIC ACID 500 MG TAB PO SCH (08:02)
[2024-10-07] MEDS: MULTIVITAMIN TAB PO SCH (08:02)
[2024-10-07] MEDS: ONDANSETRON INJ 2 MG/ML 2 ML VIAL IV PRN (08:33)
--- NOTE | 2024-10-07 08:43 | Orthopedic Progress Note ---
Date of Service October 07, 2024 Assessment & Plan (1) S/P right knee surgery: Plan: POD Day 1 s/p total knee arthroplasty Patient overall doing well. She had a little bit of nausea which improved with as needed Zofran. She did not have any vomiting. She did well ambulating with a walker and was cleared by physical therapy. She would like to go home today. Neurovascularly intact. Labs show mild anemia hemoglobin 11.7. No leukocytosis. No electrolyte di sturbances. Renal function normal. Postop knee x-ray demonstrates expected findings. Case reviewed with Dr. Tillman. Patient had appointment scheduled tomorrow for dressing change however she asked if that could be completed today due to prolonged drive time. Dr. Tillman is agreeable with this. I removed her dressing today and it looks well without dehiscence or infection. No drainage. Silverlon dressing was applied. Reapplied Justice stocking and Mann wrap for compression. She can shower on day 3. Dressing will stay in place until her 2- week postop appointment. She will be weightbearing as tolerated with a walker. She also has a cane at home. Physical therapy at home set up for the next 2 weeks. Pain control with Tylenol and oxycodone. Prescription for oxycodone was sent to the pharmacy. PDMP reviewed with no concerning findings. Elevate and ice. DVT prophylaxis with aspirin 81 mg twice daily for 6 weeks. Teds x 3 weeks. Vitamin C and iron supplementation twice daily for 2 weeks. Follow-up in 2 weeks on 10/21/2024 for 2-week appointment. Reasons to contact the office were reviewed. All questions were answered. Admission and Anticipated Discharge Date Admission Date: October 06, 2024 Subjective Patient is a 68-year-old female postop day 1 status post right total knee arthroplasty seen in her room this morning. She is feeling nauseous right now but has not had any vomiting. She ate breakfast, has not had any narcotic medication since 9:00 last night. Pain currently 6/10. She was able to stand and walk using her walker with minimal assistance. She denies any fevers or chills. No shortness of breath or chest pain. No numbness or tingling in her toes. She thinks most likely she would like to go home today. She would prefer not to come to outpatient appointment tomorrow due to prolonged drive time. Physical Exam Constitutional: Well appearing in no acute distress. Pleasant. Respiratory: Lungs clear to auscultation bilaterally Cardiovascular: Regular rate and rhythm. No murmurs rubs or gallops. Right DP pulse 2+. Musculoskeletal: Right lower extremity: Surgical incision overlying the anterior with Zipline in place. There is no dehiscence. There is no discharge. No surrounding erythema. No significant swelling about the knee. Pain elicited in the knee with active range of motion. She is able to flex to about 50 degrees. Just able to raise the leg off the chair. Able to move all toes. Strength 5+ with ankle plantarflexion dorsiflexion inversion and eversion. Neurologic: No sensory deficits in right lower extremity to light touch Results & Data Vital Signs (Past 12 Hours) Vital Signs Temp Pulse Resp BP Pulse Ox O2 Del Method 10/07/24 07:35 97.9 F 75 18 147/82 H 96 Room Air 10/07/24 06:00 97.9 F 77 17 134/81 94 Room Air 10/07/24 02:00 97.7 F 80 16 131/77 96 Room Air 10/06/24 22:00 97.7 F 79 16 138/73 97 Room Air 10/06/24 22:00 97.7 F 79 16 138/73 97 Room Air Laboratory Results Laboratory Results WBC 10.38 K/ul (4.8-10.8) 10/07/24 05:30 RBC 4.19 M/uL (4.20-5.40) L 10/07/24 05:30 Hgb 11.7 g/dl (12.0-16.0) L 10/07/24 05:30 Hct 35.9 % (37.0-47.0) L 10/07/24 05:30 MCV 85.7 fL (80.0-100.0) 10/07/24 05:30 MCH 27.9 pg (25.0-34.0) 10/07/24 05:30 MCHC 32.6 g/dL (32.0-36.0) 10/07/24 05:30 RDW Std Deviation 44.3 fL (36.4-46.3) 10/07/24 05:30 RDW Coeff of Daniel 14.2 % (11.5-14.5) 10/07/24 05:30 Plt Count 288 K/uL (130-400) 10/07/24 05:30 MPV 10.7 fL (9.4-12.4) 10/07/24 05:30 Sodium 137 mmol/L (136-145) 10/07/24 05:30 Potassium 4.3 mmol/L (3.5-5.1) 10/07/24 05:30 Chloride 103 mmol/L (98-107) 10/07/24 05:30 Carbon Dioxide 26 mmol/L (21-32) 10/07/24 05:30 Anion Gap 8 (3-11) 10/07/24 05:30 BUN 10 mg/dl (6-23) 10/07/24 05:30 Creatinine 0.65 mg/dl (0.6-1.2) 10/07/24 05:30 Est Cr Clr Drug Dosing 91.8 ml/min 10/07/24 05:30 eGFR 95.25 10/07/24 05:30 BUN/Creatinine Ratio 15.4 (10-20) 10/07/24 05:30 Glucose 168 mg/dl (70-99(Fasting)) H 10/07/24 05:30 POC Glucose 125 mg/dl (70-99) H 10/07/24 07:36 Estimat Average Glucose 163 mg/dl 10/07/24 05:30 Hemoglobin A1c 7.3 % (4.5-5.6) H 10/07/24 05:30 Calcium 8.8 mg/dl (8.6-10.3) 10/07/24 05:30 Diagnostic Findings Knee X-Ray 10/06/24 09:54 XR knee RT 1 or 2V routine HISTORY: 68 years-old Female Surgical Post Op right knee arthroplasty COMPARISON: 07/29/2024 TECHNIQUE: 2 views of the right knee FINDINGS: Total joint arthroplasty with patellar resurfacing. Expected postoperative soft tissue swelling with deep tissue air. No acute fracture or unexpected opaque foreign body. IMPRESSION: Total joint arthroplasty with expected postoperative changes. ACT 112: Negative or not required by law. The above report was generated using voice recognition software. It may contain grammatical, syntax or spelling errors. Electronically signed by: Barrett Mejia M.D. 10/06/2024 1:17 PM
--- NOTE | 2024-10-07 09:49 | Hospitalist Progress Note ---
Date of Service October 07, 2024 Assessment & Plan (1) S/P right knee surgery: Plan: S/p right total knee arthroplasty with Dr. Tillman on 10/06 Perioperative antibiotics, pain control, fluids, and DVT PPx per the primary team hgb 11.7 - no recent prior to know baseline mild elevations in BP while here - not started on medications, denies hx of HTN. Discussed close follow up with PCP (2) DM type 2 (diabetes mellitus, type 2): Plan: A1c 7.3 Can resume home metformin on discharge (3) Hypothyroidism: Plan: Continue levothyroxine (4) Hyperlipidemia: Plan: Continue rosuvastatin (5) Glaucoma: Plan: Continue timolol drops Plan DIspo: medically stable. Agree with discharge today Admission and Anticipated Discharge Date Admission Date: October 06, 2024 Supervising Physician Co-Signing Physician Notes PA Supervision Note: I did not personally see or examine the patient today, but I verified all molina points of ARLENE Borges's assessment and plan with the following exceptions/additions: None Subjective patient seen sitting up in the chair - reports her knee is sore has not been on HTN meds - asymptomatic with mild elevations passing gas, no BM since surgery Review of Systems Review of Systems: All systems reviewed & are unremarkable except as noted in Subjective Physical Exam Physical Exam: General: NAD, VS as above Resp: normal respiratory effort, lungs clear to auscultation CV: RRR, no murmur, Abd: normal bowel sounds, soft, non tender, Extremities: Moves all extremities, right knee in elizabeth wrap Neuro: A&O x3, Skin: intact, no lesions noted Results & Data Results & Data Vital Signs (Past 12 Hours) Vital Signs Temp Pulse Resp BP Pulse Ox O2 Del Method 10/07/24 07:35 97.9 F 75 18 147/82 H 96 Room Air 10/07/24 06:00 97.9 F 77 17 134/81 94 Room Air 10/07/24 02:00 97.7 F 80 16 131/77 96 Room Air 10/06/24 22:00 97.7 F 79 16 138/73 97 Room Air 10/06/24 22:00 97.7 F 79 16 138/73 97 Room Air Laboratory Results cbc and chemistry reviewed PG Care Time/CCT Total # of Minutes Spent Total Time Spent with Patient: Total time spent is greater than 50% in coordination of care (as documented) at patient's floor/unit and/or counseling patient: Coding Level of Care Code 78512 SUB INP/OBS CARE 2MIN Diagnoses S/P right knee surgery Z98.890 DM type 2 (diabetes mellitus, type 2) E11.9 Hypothyroidism E03.9 Hyperlipidemia E78.5 Glaucoma H40.9
--- NOTE | 2024-10-07 12:56 | Discharge Summary ---
Date of Service October 07, 2024 Principal Diagnosis s/p right knee total arthroplasty. Osteoarthritis right knee Discharge Exam Constitutional: Well appearing in no acute distress. Pleasant. Respiratory: Lungs clear to auscultation bilaterally Cardiovascular: Regular rate and rhythm. No murmurs rubs or gallops. Right DP pulse 2+. Musculoskeletal: Right lower extremity: Surgical incision overlying the anterior with Zipline in place. There is no dehiscence. There is no discharge. No surrounding erythema. No significant swelling about the knee. Pain elicited in the knee with active range of motion. She is able to flex to about 50 degrees. Just able to raise the leg off the chair. Able to move all toes. Strength 5+ with ankle plantarflexion dorsiflexion inversion and eversion. Neurologic: No sensory deficits in right lower extremity to light touch Discharge Data Allergies Allergy/AdvReac Type Severity Reaction Status Date / Time No Known Allergies Allergy Verified 10/06/24 05:38 Consultations 10/06/24 11:17 Consult Hospitalist Routine Procedures Performed Operation Date: 10/06/24 07:00 Actual Procedures p Right Total Knee Arthroplasty(Right) - Robert Tillman MD Hospital Course (1) S/P right knee surgery: Patient underwent an uneventful right total knee arthroplasty on 10/06/[address] Tillman. Her pain was controlled within reason and she needed a dose of Zofran for some nausea this morning but did not have any vomiting. She ambulated well with a walker and was cleared by physical therapy and felt well enough to be discharged on 10/07/2024. She was also evaluated by Dr. Tillman prior to discharge. Her labs showed a mild anemia hemoglobin 11.7 expected after surgery. No other notable findings. She was evaluated by hospitalist team and cleared for discharge. Monitor very mild high blood pressures and follow up with PCP. Postop knee x-ray demonstrated expected findings. Silverlon dressing was applied today. She had an appointment scheduled with our office tomorrow however this was canceled since her dressing was changed today. She has an appointment scheduled for 2 weeks from now with our office. She will be weightbearing as tolerated with a walker. She has home physical therapy set up for the next 2 weeks. Tylenol and oxycodone for pain control. Elevate and ice. DVT prophylaxis with aspirin 81 mg twice daily for the next 6 weeks. Teds x 3 weeks. Vitamin C and iron supplementation twice daily for the next 2 weeks. Reasons to contact office were reviewed. All questions were answered. Patient happy with plan of care. Total Time Total Time Spent Total Time Spent (In Minutes): 30 minutes Discharge Plan Discharge Items Patient Disposition: Home - Home Health Services Reason For Visit: POST OP RTKA Discharge Diagnosis: s/p RTKA Activity: Per Instructions section Non-emergency contact: Surgeon Call non-emergency contact if: you have any medication questions, your symptoms worsen, your pain is not controlled, your temperature is above 101.5, your wound has increased redness, your wound has increased drainage and your wound pain has increased Follow-up/Referrals: Pradip Dinh [Primary Care Provider] - (follow up in one week ) Nedra Adam PA-C [Physician Infrastructure Security Architect] - 10/21/24 1:15 am Diet: Carb Consistent or DM2 Addtl Attending Provider Instructions: POST OPERATIVE DISCHARGE INSTRUCTIONS Pain Control Please take the follow medications for pain control, as well as icing and elevating your operative extremity. Pain after surgery is to be expected. We may not be able to take away all of your pain, but the goal is to make your pain manageable - Extra strength Tylenol 1,000mg (2 tabs) every 8 hours - Oxycodone 5-10mg (1-2tabs) every 4-6 hours as needed DVT Prophylaxis With any surgery, you are at increased risk for blood clots. Please take the follow measures to prevent blood clots and read the warning signs to watch for. Please take the follow anticoagulant: Aspirin 81mg twice a day for 6 weeks If you were given VIDA compression stockings, these are to be worn on both legs for 18-20 hours daily for 3 weeks Warning signs: Calf pain, lower extremity swelling, numbness/tingling, skin discoloration, increased pain, shortness of breath, chest pain. Please contact our office if you experience any of these symptoms or call 911 if you are having trouble breathing. Ice Ice your operative site at least 5 times a day for 15-30 minutes at a time, for the first three days, then as needed. This will help to reduce swelling and pain. Make sure you have a thin cloth between the ice or cooling unit and your skin to prevent yanes bite. This is especially important if you received a nerve block. Diet/Nausea/Vomiting Start by drinking clear liquids and eating crackers. If you can tolerate this, then you may resume your normal diet. If you feel nauseated or vomit, take Zofran/ondansetron (if prescribed). Please call our office if you have intractable nausea or vomiting, or, if after hours, you may go to the Emergency Room for help. Surgical Dressing Please leave on any dressing until you are seen by either PT or PA for your post-operative appointment, unless you are otherwise instructed. If there are any issues with your dressing please give our office a call. Weight bearing, Range of Motion, Activity You will be weight bearing as tolerated on your operative site. you may use crutches or walker to assist in ambulation. Physical therapy You will do your rehab for the first two weeks with home health. Then you will begin outpatient physical therapy. It is very important you follow your rehab protocol and do your exercises as instructed by your provider and physical therapist. Wound care and showering We will inspect your wound at your first post-operative visit. It is normal to see some dried blood on the dressing. Do not remove your dressing, paper strips or sutures yourself unless otherwise instructed. Showering is allowed post op day 3. Do not scrub or remove any dressings, unless you are otherwise instructed. Once your dressing is changed in the office to the water-resistant dressing. You can shower with this on as long as all the edges are in tact. To promote wound healing, we recommend taking a multi-vitamin, or taking 500mg Vitamin C supplement twice a day for two weeks and 325mg Iron supplement twice a day for two weeks. This is especially important if you had a total joint replacement. Constipation Constipation is a common side effect of narcotic pain medication, dehydration after surgery and iron supplement (if you were instructed to begin that after surgery). We recommend purchasing an [id number]-[id number] laxative such as Milk of Magnesia, Colace, Dulcolax, Miralax or Senna from a local pharmacy, and taking it as instructed. Stay hydrated and you may increase your fiber in your diet as well. Call our clinic if any questions. Driving You may not drive while taking narcotic pain medication or while in a cast, splint, sling or brace. Driving will be discussed at your first post op appointment Return to Work Your return to work depends on what surgery was done and what type of work you do. Please bring any paperwork your employer needs completed to your first post-operative visit. Also, bring a description of your job duties, as this helps us to understand what risks you may face at work. Travel Avoid long distance travel (greater than 1 hour) in airplanes and cars for the first 6 weeks after surgery. Follow-up Please attend your post operative appointments as scheduled. At these appointments, we may do dressing change and remove any sutures/johnathon/Zip-line 10-14 days after your surgery. If you do not know your post operative appointment dates or times please call the office at [phone] When to call the office It is normal to have swelling and bruising in the limb that was operated on. This will improve with time. It is also normal to have fevers for the first 2 days after surgery. Reasons you should call your doctor include: Uncontrolled pain; Nausea, vomiting, or constipation that does not improve with medication; Fevers over 101.5, chills, sweats; Drainage or bleeding from the wound; Foul odor; Spreading areas of redness; calf pain or swelling, shortness of breath, chest pain; Any other concerns You may call the office at [phone]. If it is a medical emergency please call 911. Addtl Foot Doctor Provider Instructions: Hospital Medicine: - mild elevations in Blood pressures when you were here, continue to follow up with your PCP regarding this in case you need to start mediciation. Pending Studies at Discharge: Yes Stand-Alone Forms: [facility] Medications and DC Order Prescriptions: New aspirin 81 mg Tablet,Delayed Release (Dr/Ec) 81 mg PO BID Qty: 30 0RF acetaminophen [Tylenol Extra Strength] 500 mg Tablet 1,000 mg PO Q8 Qty: 30 0RF ascorbic acid (vitamin C) [Vitamin C] 500 mg Tablet 500 mg PO BID Qty: 30 0RF oxycodone 5 mg Tablet 5 - 10 mg PO Q4H PRN (Reason: pain) Qty: 18 0RF ferrous gluconate 324 mg (38 mg iron) Tablet 324 mg PO BIDM Qty: 30 0RF Continued multivitamin Tablet 1 tab PO QAM levothyroxine 100 mcg Tablet 112 mcg PO QAM timolol 0.5 % Drops 1 drp OPHTHALMIC (EYE) HS Rx Instructions: EACH EYE rosuvastatin [Crestor] 20 mg Tablet 20 mg PO PM cinnamon bark [Cinnamon] 500 mg Capsule 500 mg PO BID metformin 500 mg Tablet 1,000 mg PO BID Discontinued acetaminophen 500 mg Tablet 1,000 mg PO Q8 PRN (Reason: pain) Qty: 60 0RF Rx Instructions: can purchase over the counter oxycodone 5 mg Tablet 5 - 10 mg PO Q4H PRN (Reason: pain) Qty: 30 0RF Rx Instructions: continued therapy Vitamin C (ascorbate calcium) 1 tab PO DAILY Krames/Other Patient Handouts: Managing Type 2 Diabetes Admission Data Admit Date/Time: 10/06/24 09:54 Attending Provider: Robert Tillman Admit Provider: Robert Tillman Primary Care Provider: Pradip Dinh Other Providers: [facility],Referral Center; [facility],Home Healthcare; Wanda Regalado Other Interventions: Discharge Summary Assessment (RN) Last Done: 10/07/24 08:44
== END 2024-10-07 10:56 | disposition home health service (06) ==
LOC: ASU 04:54 → 3E 04:54